=== PATIENT | female | born 1950 | race Caucasian/White ===

== ENCOUNTER → 2016-08-25 | Outpatient (CLI) | payer BC ==
[~2016-08-25] MED LIST: ACET-2267 PO; B12; CHOL200035 PO; CLAR250T3 PO; CNC1KV IJ; COLL30OI TP; DAPS100T3 PO; DIPH1TAB45 PO; DIPH30CR TP; ESOM20SU PO; GUAI1CAP52 PO; GUAI5SYR PO; IBUP-15 PO; LEVO500T69 PO; LISI20TA PO; LRT10T PO; LUTE6TAB PO; MELO7.5T PO; METR500T PO; MULT-963 PO; ND-PRIM50T PO; OMEP20CA12 PO; OMEP40CA36 PO; ONDAN4ODT PO; PNT40TEC PO; PRD10T PO; PROBIOTIC1 EACH PO; PROP20TA5 PO; PROP60CA PO; PROP60TA16 PO; RT-ALBUINH IH; SIMV20TA3 PO; SIMV40TA4 PO; SULF1TAB35 PO; TRAM-42 PO; VITA80006 PO; WARF5TAB PO; WRF5T PO; [UNRECOGNIZED DRUG - CODE] PO
--- NOTE | 2016-08-25 13:57 | Diagnostic Imaging Report ---
EXAMINATION: Left breast diagnostic mammogram with The current study was also evaluated with a Computer Aided Detection (CAD) system. COMPARISON: 01/15/2016. FINDINGS: There is no mass, architectural distortion, or suspicious calcification. IMPRESSION: No mammographic evidence of malignancy. The ultrasound evaluation is pending. ACR BI-RADS Category 0: Incomplete. (Needs additional imaging evaluation). Result letter will be mailed to the patient. Note: At least 10% of breast cancer is not imaged by mammography. Dictated by: Dictated on workstation # [id number]
--- NOTE | 2016-08-25 14:06 | Diagnostic Imaging Report ---
EXAMINATION: Left breast ultrasound. INDICATION: Pain and itching in the lower aspect of the left breast. FINDINGS: The area of pain and itching shows no underlying abnormality. IMPRESSION: Negative study. If symptoms persist or there is a high index of suspicion, then consider performing an MRI of the breasts. ACR BI-RADS Category 1: Negative. Dictated by: Dictated on workstation # [id number]
== END ==
LOC: RAD 07:33
PROVIDERS: ATTEND Surgery
DX: N64.4 Mastodynia (principal)
CPT/HCPCS: 76642

== ENCOUNTER → 2016-09-02 | Outpatient (CLI) | payer BC ==
[~2016-09-02] MED LIST changes: +GADOBUTROL 10 MMOL/10 ML (GADAVIST) VIAL IV ONE
[2016-09-02 08:00] LABS: BLOOD UREA NITROGEN 15 MG/DL (7-18); BUN/CREATININE RATIO 19; GFR ESTIMATED > 60
--- NOTE | 2016-09-03 17:31 | Diagnostic Imaging Report ---
EXAMINATION: MRI of the breast bilateral with and without contrast. INDICATION: Left breast pain. TECHNIQUE: Utilizing 1.5 Ines GE magnet, patient was placed in a prone position with 8-channel dual breast coil utilized. Axial STIR precontrasted image and axial T1 fat-sat postcontrast high-resolution images obtained. Sagittal T2-weighted images precontrast bilaterally as well. Sagittal vibrant temporal images were obtained pre and postcontrast with bolus technique utilized of gadolinium. Images are postcontrast immediately and subsequently for 7 minutes. Pre and postcontrasted images are then evaluated with [facility] for evaluation of possible angiogenesis. FINDINGS: By history, the patient experienced a sharp pain to the lower left breast approximately six weeks ago. The screening mammogram performed on 01/15/2016 failed to show any sign of malignancy or of an acute abnormality. The diagnostic mammogram and ultrasound exam of 08/25/2016 were also unremarkable for malignancy or for an acute abnormality involving the left breast. On this study, there is no abnormal enhancement involving the left breast on the postcontrast series to suggest a neoplastic or infectious process. There is no abnormality of the right breast either. The visualized portions of the thorax and upper abdomen show no obvious abnormality. The hiatal hernia seen on the CT chest exam of 01/23/2015 is partially visualized on this study and does not seem to have changed significantly. IMPRESSION: 1. There is no evidence for malignancy or for an acute abnormality to account for patient's pain in the left breast. Clinical follow up is recommended. 2. The right breast is unremarkable. 3. The hiatal hernia seen previously is again visualized and unchanged. These results were discussed with Dr. Baker. Dictated by: Dictated on workstation # [id number]
== END ==
LOC: RAD 07:26
PROVIDERS: ATTEND Surgery
DX: N64.4 Mastodynia (principal); N63 Unspecified lump in breast
CPT/HCPCS: 36415; 77059; 82565; 84520

== ENCOUNTER → 2017-02-08 | Outpatient (CLI) | payer BC ==
[~2017-02-08] MED LIST changes: -GADOBUTROL 10 MMOL/10 ML (GADAVIST) VIAL IV ONE
--- NOTE | 2017-02-09 10:54 | Diagnostic Imaging Report ---
Bilateral screening mammogram 2D views with tomosynthesis The current study was also evaluated with a Computer Aided Detection (CAD) system. Indication: Screening. No current complaints stated on the questionnaire. COMPARISON: 08/25/16 FINDINGS: The breasts are composed of scattered fibroglandular densities. There is no mass, architectural distortion or suspicious cluster of calcification. Allowing for technique and positional differences, no suspicious change is seen. IMPRESSION: No significant change. ACR BI-RADS Category 2: Benign findings. Result letter will be mailed to the patient. Note: At least 10% of breast cancer is not imaged by mammography. Dictated by: Dictated on workstation # [id number]
== END ==
LOC: RAD 15:31
PROVIDERS: ATTEND Internal Medicine
DX: Z12.31 Encounter for screening mammogram for malignant neoplasm of breast (principal)
CPT/HCPCS: 77067

== ENCOUNTER → 2017-04-08 | Outpatient (CLI) | payer BC ==
--- NOTE | 2017-04-08 20:40 | Diagnostic Imaging Report ---
EXAMINATION: DEXA scan. INDICATION: Menopause. TECHNIQUE: Bone mineral density estimated based on dual energy radiography over the lumbar spine and femoral necks, was performed. FINDINGS: The lumbar spine T-score is -0.5. This is 0.7% decreased density measurements compared to 2014 exam. T score of the left femoral neck is -0.3 and on the right side is -0.6. This is 0.7% increased density measurements compared to 2014 exam. IMPRESSION: Bone mineral density is within normal limits. Dictated by: Dictated on workstation # [id number]
== END ==
LOC: RAD 11:24
PROVIDERS: ATTEND Internal Medicine
DX: Z78.0 Asymptomatic menopausal state (principal)
CPT/HCPCS: 77080

== ENCOUNTER 2017-08-21 14:32 | Emergency (ER) | payer BC ==
[~2017-08-21] VITALS: Ht 170.2 cm; Wt 81.6 kg
[2017-08-21] MEDS ORDERED: FLEET ENEMA ADULT 1 EA BTL PR ONE (16:30)
[2017-08-21] MEDS ORDERED: fentaNYL INJECTION 100 MCG/2 ML AMP IVP ONE (16:30)
[2017-08-21] MEDS ORDERED: NS IV 1000 ML 1,000 ML IV SCH (16:30)
--- NOTE | 2017-08-21 16:33 | ED GI ---
General Chief Complaint: Abdominal/GI Problems Stated Complaint: BOWEL MOVEMENT ISSUES Source of Information: Patient Exam Limitations: No Limitations History of Present Illness Date Seen by Provider: Aug 21, 2017 Time Seen by Provider: 16:31 Initial Comments To ER come in by her mother with reports of possible fecal impaction. She states that she has some suprapubic abdominal pain. She has a history of very irregular bowel movements. It's been a few days since her last bowel movement. She took some Dulcolax tablets this morning which did not result in any bowel movement, only suprapubic abdominal cramping. No nausea or vomiting. Timing/Duration: 1-2 Days Severity/Quality: Cramping Location: Suprapubic Radiation: No Radiation Activities at Onset: None Allergies and Home Medications Allergies Coded Allergies: Penicillins (Verified Allergy, Mild, RASH, 07/19/13) codeine (Verified Adverse Reaction, Mild, KNOTS IN HER STOMACH, 07/19/13) Home Medications Acetaminophen 500 Mg Tablet, 1,000 MG PO TID PRN for PAIN, (Reported) Albuterol Sulfate 8.5 Gm Hfa.aer.ad, 2 PUFF IH Q4H PRN for CONGESTION Prescribed by: NIK LIMA on 01/22/15 141 Cholecalciferol (Vitamin D3) 2,000 Unit Capsule, 2,000 UNIT PO DAILY, (Reported) Ciprofloxacin HCl 500 Mg Tablet, 500 MG PO BID Prescribed by: NIK LIMA on 08/21/171815 Collagenase 30 Gm Oint..gm., TP HS, (Reported) Cyanocobalamin 1,000 Mcg/Ml Inj, 1,000 MCG IJ MONTHLY , (Reported) Dapsone 100 Mg Tablet, 100 MG PO DAILY, (Reported) FILLED 01/17/15 FOR 7 DAY THERAPY Diphenhydramine HCl 30 Gm Cream..g., TP DAILY, (Reported) Guaifenesin/Dextromethorphan 5 Ml Syrup, 10 ML PO QID PRN for COUGH, (Reported) Lactobacillus Rhamnosus Gg 1 Each Capsule, 1 EACH PO BID, (Reported) Loratadine 10 Mg Tab, 10 MG PO DAILY, (Reported) Lutein 6 Mg Tablet, 6 MG PO DAILY, (Reported) Metronidazole 500 Mg Tablet, 500 MG PO TID Prescribed by: NIK LIMA on 08/21/171815 Multivitamin 1 Each Tablet, 1 TAB PO DAILY, (Reported) Omeprazole 40 Mg Capsule.dr, 40 MG PO HS, (Reported) Prednisone 10 Mg Tab, 10 MG PO UD 40MG PO X3 DAYS, 30MG X3 DAYS, 20MG X3 DAYS, 10MG X3 DAYS, THEN STOP Prescribed by: GERRY DODGE on 01/28/15 1140 Primidone 50 Mg Tablet, 100 MG PO HS, (Reported) Propranolol HCl 60 Mg Cap.sa.24h, 60 MG PO DAILY, (Reported) Simvastatin 40 Mg Tablet, 40 MG PO HS, (Reported) Warfarin Sod 5 Mg Tab, 5 MG PO MO,TUE,KIMBERLY,FRI,SAT, (Reported) Warfarin Sodium 5 Mg Tablet, 7.5 MG PO WED, AND SUN, (Reported) Patient Home Medication List Home Medication List Reviewed: Yes Review of Systems Constitutional: see HPI EENTM: No Symptoms Reported Respiratory: No Symptoms Reported Cardiovascular: No Symptoms Reported Gastrointestinal: See HPI, Abdominal Pain, Constipated; Denies Diarrhea, Denies Nausea, Denies Vomiting Genitourinary: No Symptoms Reported Musculoskeletal: no symptoms reported Skin: no symptoms reported Psychiatric/Neurological: No Symptoms Reported Endocrine: No Symptoms Reported Hematologic/Lymphatic: No Symptoms Reported Past Vpjsohk-Rqyabo-Qlqlck Hx Patient Social History 2nd Hand Smoke Exposure: Yes Recent Foreign Travel: No Contact w/Someone Who Travel: No Immunizations Up To Date Tetanus Booster (TDap): Less than 5yrs Date of Pneumonia Vaccine: Feb 07, 2011 Date of Influenza Vaccine: Feb 07, 2014 Seasonal Allergies Seasonal Allergies: No Past Medical History Appendectomy, Gallbladder, Tonsillectomy Pulmonary Embolism Deep Vein Thrombosis, High Cholesterol 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 History: Menopausal Kidney Stones Colitis, Gastroesophageal Reflux, Diverticulosis, C-Diff, Hiatal Hernia, Ulcer, Gall Bladder Disease Family Medical History Cancer (grandmother breast ca great grandmother bone cancer brother leukemia) Cataract (grand grandparents ) Chest pain (grandmother ) Family history: Allergy 09 BROTHER Family history: Arthritis (mother has ra) 03 MOTHER Family history: Cardiovascular disease 03 FATHER Family history: Diabetes mellitus (uncle ) Family history: Glaucoma (grandparents ) Family history: Hypertension 03 MOTHER Family history: Osteoporosis 03 MOTHER Headache 03 MOTHER Heart disease (uncle ) 03 FATHER History of - anemia (grandmother and mother ) 03 MOTHER Kidney disease (brother had kidney stones ) Myocardial infarction 03 FATHER Prostate cancer (grandfather) Stroke 09 BROTHER Visual impairment No Family History of: Abdominal aortic aneurysm [place]'s disease Alcoholism Aphasia Cancer of colon Congenital heart disease Congestive heart failure Cystic fibrosis Dementia Dysphagia Family history: Alzheimer's disease Family history: Asthma Family history: Breast disease Family history: Coronary thrombosis Family history: Gastrointestinal disease Family history: Thyroid disorder Hearing loss Hereditary disease History of - disorder History of - respiratory disease History of drug abuse Human immunodeficiency virus (HIV) seropositivity Hypercholesterolemia Infertile Malignant neoplasm of lung Parkinson's disease Psychotic disorder Seizure disorder Tuberculosis Physical Exam Vital Signs Vital Signs - First Documented 08/21/17 16:54 Temp 97.4 Pulse 66 Resp 20 B/P (MAP) 118/83 (95) Pulse Ox 99 Capillary Refill : General Appearance: WD/WN, no apparent distress HEENT: PERRL/EOMI, normal ENT inspection Neck: non-tender, full range of motion Respiratory: no respiratory distress, no accessory muscle use Cardiovascular: regular rate, rhythm Gastrointestinal: normal bowel sounds, soft, tenderness (Suprapubic tenderness) Genital/Rectal: other (Digital rectal exam done with an RN at the bedside. I am unable to palpate any fecal impaction within the rectal vault.) Extremities: normal range of motion, non-tender Neurologic/Psychiatric: alert, normal mood/affect, oriented x 3 Skin: normal color, warm/dry Progress/Results/Core Measures Lab Results Laboratory Tests Test 08/21/17 16:20 08/21/17 17:05 Range/Units White Blood Count 16.6 H 4.3-11.0 10^3/uL Red Blood Count 5.09 4.35-5.85 10^6/uL Hemoglobin 15.5 11.5-16.0 G/DL Hematocrit 45 35-52 % Mean Corpuscular Volume 89 80-99 FL Mean Corpuscular Hemoglobin 31 25-34 PG Mean Corpuscular Hemoglobin Concent 34 32-36 G/DL Red Cell Distribution Width 13.9 10.0-14.5 % Platelet Count 286 130-400 10^3/uL Mean Platelet Volume 11.4 H 7.4-10.4 FL Neutrophils (%) (Auto) 82 H 42-75 % Lymphocytes (%) (Auto) 13 12-44 % Monocytes (%) (Auto) 4 0-12 % Eosinophils (%) (Auto) 0 0-10 % Basophils (%) (Auto) 0 0-10 % Neutrophils # (Auto) 13.6 H 1.8-7.8 X 10^3 Lymphocytes # (Auto) 2.2 1.0-4.0 X 10^3 Monocytes # (Auto) 0.7 0.0-1.0 X 10^3 Eosinophils # (Auto) 0.1 0.0-0.3 10^3/uL Basophils # (Auto) 0.0 0.0-0.1 10^3/uL Neutrophils % (Manual) 86 % Lymphocytes % (Manual) 12 % Monocytes % (Manual) 1 % Eosinophils % (Manual) 1 % Basophils % (Manual) 0 % Band Neutrophils 0 % Blood Morphology Comment NORMAL Prothrombin Time 20.0 H 12.2-14.7 SEC INR Comment 1.7 H 0.8-1.4 Sodium Level 139 135-145 MMOL/L Potassium Level 4.4 3.6-5.0 MMOL/L Chloride Level 108 H 98-107 MMOL/L Carbon Dioxide Level 22 21-32 MMOL/L Anion Gap 9 5-14 MMOL/L Blood Urea Nitrogen 13 7-18 MG/DL Creatinine 0.71 0.60-1.30 MG/DL Estimat Glomerular Filtration Rate > 60 BUN/Creatinine Ratio 18 Glucose Level 121 H 70-105 MG/DL Calcium Level 9.7 8.5-10.1 MG/DL Total Bilirubin 0.2 0.1-1.0 MG/DL Aspartate Amino Transf (AST/SGOT) 16 5-34 U/L Alanine Aminotransferase (ALT/SGPT) 23 0-55 U/L Alkaline Phosphatase 78 40-136 U/L Total Protein 6.7 6.4-8.2 GM/DL Albumin 4.3 3.2-4.5 GM/DL Urine Color YELLOW Urine Clarity CLEAR Urine pH 5 5-9 Urine Specific [place] 1.025 H 1.016-1.022 Urine Protein 1+ H NEGATIVE Urine Glucose (UA) NEGATIVE NEGATIVE Urine Ketones NEGATIVE NEGATIVE Urine Nitrite NEGATIVE NEGATIVE Urine Bilirubin NEGATIVE NEGATIVE Urine Urobilinogen NORMAL NORMAL MG/DL Urine Leukocyte Esterase NEGATIVE NEGATIVE Urine RBC (Auto) 1+ H NEGATIVE Urine RBC 0-2 /HPF Urine WBC NONE /HPF Urine Squamous Epithelial Cells 0-2 /HPF Urine Crystals NONE /LPF Urine Bacteria NEGATIVE /HPF Urine Casts NONE /LPF Urine Mucus NEGATIVE /LPF Urine Culture Indicated NO My Orders Orders - NIK LIMA SUPERVISOR KNITTING Cbc With Automated Diff (08/21/17 16:24) Comprehensive Metabolic Panel (08/21/17 16:24) Protime With Inr (08/21/17 16:24) Na Phos/Na Biphos Enema (Fleet Enema Leo (08/21/17 16:30) Ns Iv 1000 Ml (Sodium Chloride 0.9%) (08/21/17 16:30) Fentanyl Injection (Sublimaze Injection (08/21/17 16:30) Ua Culture If Indicated (08/21/17 16:30) Manual Differential (08/21/17 16:20) Ct Abdomen/Pelvis W (08/21/17 16:59) Iohexol Injection (Omnipaque 350 Mg/Ml 1 (08/21/17 17:15) Sodium Chloride Flush (Catheter Flush Sy (08/21/17 17:15) Ns (Ivpb) (Sodium Chloride 0.9%) (08/21/17 17:15) Pharmacy Communication (Pharmacy Communi (08/21/17 17:12) Levofloxacin Tablet (Levaquin Tablet) (08/21/17 18:15) Metronidazole Tablet (Flagyl Tablet) (08/21/17 18:15) Ketorolac Injection (Toradol Injection) (08/21/17 19:15) Magnesium Citrate Oral Soln (Citrate Of (08/21/17 19:15) Medications Given in ED Current Medications Medications Dose Ordered Sig/Patricia Route Start Time Stop Time Status Last Admin Dose Admin Fentanyl Citrate 50 mcg ONCE ONCE IVP 08/21/17 16:30 08/21/17 16:31 DC 08/21/17 16:46 50 MCG Iohexol 100 ml ONCE ONCE IV 08/21/17 17:15 08/21/17 17:16 DC 08/21/17 17:32 100 ML Sodium Biphosphate/ Sodium Phosphate 1 ea ONCE ONCE [place] 08/21/17 16:30 08/21/17 16:31 DC 08/21/17 16:46 1 EA Sodium Chloride 10 ml NEEDED PRN IV 08/21/17 17:15 08/21/17 17:32 10 ML Sodium Chloride 250 ml ONCE ONCE IV 08/21/17 17:15 08/21/17 17:16 DC 08/21/17 17:32 80 ML Vital Signs/I&O 08/21/17 16:54 Temp 97.4 Pulse 66 Resp 20 B/P (MAP) 118/83 (95) Pulse Ox 99 Departure Communication (Admissions) 1899-CT was read as constipation. However given her leukocytosis and suprapubic abdominal cramping pain I do have some concern for sigmoid diverticulitis. I will treat with Cipro and Flagyl and laxative. Did administer a fleets enema here without success. We will also try a soapsuds enema. Impression Primary Impression: Constipation Disposition: HOME, SELF-CARE Condition: Stable Departure-Patient Inst. Decision time for Depature: 18:12 Referrals: JAMES MARAVILLA DO (PCP/Family) Primary Care Physician Patient Instructions: Constipation, Adult (DC) Add. Discharge Instructions: 1. Drink the whole bottle of magnesium citrate over about 30 minutes to 1 hour once you get home. Hope for a bowel movement (unfortunately also will have some abdominal cramping) a few hours later. If no BM by tomorrow, then, 2. Purchase MiraLAX and dissolve 4 capfuls or packets (which ever type you buy) into a 32 ounce bottle of Gatorade or water. Drink this all over about one to 2 hours. You may repeat this as needed up to twice a day. I do have some concern about early diverticulitis the sigmoid colon sign going to put you on an antibiotic as well 3. Antibiotics as directed just in case there is some early or mild diverticulitis causing your elevated white blood cell count and pain. Follow up with Dr Maravilla on Wednesday. Return promptly to ER for any intolerable or worsening pain, fevers, other conerns 4. youll also need to have your INR (blood test for coumadin) rechecked next week as a result of these antibiotics. Scripts Metronidazole (Flagyl) 500 Mg Tablet 500 MG PO TID, #21 TAB Prov: NIK LIMA APRN 08/21/17 Ciprofloxacin HCl (Cipro) 500 Mg Tablet 500 MG PO BID, #14 TAB Prov: NIK LIMA APRN 08/21/17 Copy Copies To 1: JAMES MARAVILLA PETER J APRN Aug 21, 2017 16:33
[2017-08-21 16:47] LABS: BASOPHILS % (AUTO) 0 % (0-10); EOSINOPHILS # (AUTO) 0.1 10^3/uL (0.0-0.3); EOSINOPHILS % (AUTO) 0 % (0-10); HEMATOCRIT 45 % (35-52); HEMOGLOBIN 15.5 G/DL (11.5-16.0); LYMPHOCYTES # (AUTO) 2.2 X 10^3 (1.0-4.0); LYMPHOCYTES % (AUTO) 13 % (12-44); MEAN CORPUSCULAR HEMOGLOBIN 31 PG (25-34); MEAN CORPUSCULAR HGB CONC 34 G/DL (32-36); MEAN CORPUSCULAR VOLUME 89 FL (80-99); MEAN PLATELET VOLUME 11.4 FL (7.4-10.4); MONOCYTES # (AUTO) 0.7 X 10^3 (0.0-1.0); MONOCYTES % (AUTO) 4 % (0-12); NEUTROPHILS # (AUTO) 13.6 X 10^3 (1.8-7.8); NEUTROPHILS % (AUTO) 82 % (42-75); PLATELET COUNT 286 10^3/uL (130-400); RED BLOOD COUNT 5.09 10^6/uL (4.35-5.85); RED CELL DISTRIBUTION WIDTH 13.9 % (10.0-14.5); WHITE BLOOD COUNT 16.6 10^3/uL (4.3-11.0)
[2017-08-21 16:55] LABS: INR 1.7 (0.8-1.4)
[2017-08-21 17:01] LABS: BAND NEUTROPHILS 0 %; BASOPHILS % (MANUAL) 0 %; EOSINOPHILS % (MANUAL) 1 %; LYMPHOCYTES % (MANUAL) 12 %; MONOCYTES % (MANUAL) 1 %; NEUTROPHILS % (MANUAL) 86 %; RBC MORPH NORMAL
[2017-08-21 17:02] LABS: ALANINE AMINOTRANSFERASE 23 U/L (0-55); ALBUMIN 4.3 GM/DL (3.2-4.5); ALKALINE PHOSPHATASE 78 U/L (40-136); BILIRUBIN,TOTAL 0.2 MG/DL (0.1-1.0); BUN/CREATININE RATIO 18; CALCIUM 9.7 MG/DL (8.5-10.1); CARBON DIOXIDE 22 MMOL/L (21-32); CHLORIDE 108 MMOL/L (98-107); CREATININE SERUM 0.71 MG/DL (0.60-1.30); GFR ESTIMATED > 60; GLUCOSE 121 MG/DL (70-105); POTASSIUM 4.4 MMOL/L (3.6-5.0); SODIUM 139 MMOL/L (135-145); TOTAL PROTEIN 6.7 GM/DL (6.4-8.2)
[2017-08-21 17:15] LABS: BILIRUBIN,URINE NEGATIVE (NEGATIVE); CLARITY,URINE CLEAR; COLOR,URINE YELLOW; GLUCOSE, URINE (UA) NEGATIVE (NEGATIVE); KETONES,URINE NEGATIVE (NEGATIVE); LEUKOCYTE ESTERASE ,URINE NEGATIVE (NEGATIVE); NITRITE,URINE NEGATIVE (NEGATIVE); PH,URINE 5 (5-9); PROTEIN,URINE 1+ (NEGATIVE); UROBILINOGEN,URINE NORMAL (NORMAL)
[2017-08-21] MEDS ORDERED: IOHEXOL 350 MG/ML 100 ML (OMNIPAQUE 350) VIAL IV ONE (17:15)
[2017-08-21] MEDS ORDERED: CATHETER FLUSH 10 ML SYR IV PRN (17:15)
[2017-08-21] MEDS ORDERED: NS 250 ML (IVPB) BAG IV ONE (17:15)
[2017-08-21 17:24] LABS: BACTERIA,URINE NEGATIVE /HPF; RBC,URINE 0-2 /HPF; SQUAMOUS EPITHELIAL CELL,UR 0-2 /HPF
--- NOTE | 2017-08-21 17:35 | Diagnostic Imaging Report ---
PROCEDURE: CT abdomen and pelvis with contrast. TECHNIQUE: Multiple contiguous axial images were obtained through the abdomen and pelvis after administration of intravenous contrast. INDICATION: Lower abdominal pain. FINDINGS: There is a sliding hiatal hernia. Liver appears normal. Gallbladder is absent. Pancreas is unremarkable. Spleen is not enlarged. Adrenals are normal. Kidneys appear normal. Small bowel is not dilated. There is diverticulosis of the sigmoid colon. There is no evidence of diverticulitis. There does appear to be fecal stasis in the colon. Uterus and ovaries are unremarkable. Urinary bladder is normal. IMPRESSION: Sigmoid diverticulosis. Constipation. Dictated by: Dictated on workstation # [id number]
[2017-08-21] MEDS ORDERED: metroNIDAZOLE 500 MG (FLAGYL) TAB PO ONE (18:15)
[2017-08-21] MEDS ORDERED: LEVOFLOXACIN 500 MG TAB (LEVAQUIN) PO ONE (18:15)
[2017-08-21] MEDS ORDERED: METR500T PO (18:16)
[2017-08-21] MEDS ORDERED: CIPR-225 PO (18:16)
[2017-08-21] MEDS ORDERED: KETOROLAC 30 MG/ML VIAL IVP ONE (19:15)
[2017-08-21] MEDS ORDERED: MAGNESIUM CITRATE 300 ML BTL PO ONE (19:15)
[2017-08-21 19:32] VITALS: BP 118/83
--- OUTSIDE RECORDS SUMMARY | 2017-08-22 10:03 | XMS REPORT | Continuity of Care Document ---
Author Author [facility] Organization [facility] Address Unknown Phone Unavailable Allergies Active Description Code Type Severity Reaction Onset Reported/Identified Relationship to Patient Clinical Status Yes codeine [id number] Drug Allergy Mild KNOTS IN HER ST 07/19/2013 Yes Penicillins [id number] Drug Allergy Mild RASH 07/19/2013 Medications There is no data. Problems Date Dx Coded Attending Type Code Diagnosis Diagnosed By 05/16/2011 Ot 553.3 DIAPHRAGMATIC HERNIA 05/16/2011 Ot 558.9 NONINF GASTROENTERIT NEC 05/16/2011 Ot 564.00 UNSPEC CONSTIPATION 05/16/2011 Ot 787.91 DIARRHEA 05/16/2011 Ot 791.9 ABN URINE FINDINGS NEC 05/27/2011 Ot 272.4 HYPERLIPIDEMIA NEC/NOS 05/27/2011 Ot 333.1 TREMOR NEC 05/27/2011 Ot 530.81 ESOPHAGEAL REFLUX 05/27/2011 Ot 531.90 STOMACH ULCER NOS 05/27/2011 Ot 535.40 OTH SPECIFIED GASTRITIS,W/O MENTION OF H 05/27/2011 Ot 553.3 DIAPHRAGMATIC HERNIA 05/27/2011 Ot 562.10 DIVERTICULOSIS COLON (W/O MENT OF HEMORR 05/27/2011 Ot 576.2 OBSTRUCTION OF BILE DUCT 05/27/2011 Ot 577.0 ACUTE PANCREATITIS 05/27/2011 Ot 592.0 CALCULUS OF KIDNEY 05/27/2011 Ot 793.11 SOLITARY PULMONARY NODULE 05/27/2011 Ot 999.2 VASC COMP MED CARE NEC 09/28/2011 Ot 787.91 DIARRHEA 10/01/2011 Ot 008.45 INTESTINAL INFECTION DUE TO CLOSTRIDIUM 10/01/2011 Ot 272.4 HYPERLIPIDEMIA NEC/NOS 10/01/2011 Ot 276.51 DEHYDRATION 10/01/2011 Ot 333.1 TREMOR NEC 10/01/2011 Ot 530.81 ESOPHAGEAL REFLUX 10/01/2011 Ot 793.11 SOLITARY PULMONARY NODULE 05/30/2012 Ot 272.4 HYPERLIPIDEMIA NEC/NOS 05/30/2012 Ot 453.40 ACUTE VENOUS EMBOLISM THROMBOSIS UNSP 05/30/2012 Ot 530.81 ESOPHAGEAL REFLUX 05/30/2012 Ot 553.3 DIAPHRAGMATIC HERNIA 05/30/2012 Ot 562.10 DIVERTICULOSIS COLON (W/O MENT OF HEMORR 05/30/2012 Ot 592.9 URINARY CALCULUS NOS 05/30/2012 Ot 781.0 ABN INVOLUN MOVEMENT NEC 05/30/2012 Ot 793.11 SOLITARY PULMONARY NODULE 05/30/2012 Ot V12.71 PERSONAL HISTORY OF PEPTIC ULCER DISEASE 06/08/2012 Ot 272.4 HYPERLIPIDEMIA NEC/NOS 06/08/2012 Ot 286.3 AYESHA DEF CLOT FACTOR NEC 06/08/2012 Ot 333.1 TREMOR NEC 06/08/2012 Ot 415.19 OTH PULMON EMBOLISM/INFARCT 06/08/2012 Ot 453.40 ACUTE VENOUS EMBOLISM THROMBOSIS UNSP 06/08/2012 Ot 530.81 ESOPHAGEAL REFLUX 06/08/2012 Ot 553.3 DIAPHRAGMATIC HERNIA 06/08/2012 Ot 562.10 DIVERTICULOSIS COLON (W/O MENT OF HEMORR 06/08/2012 Ot 574.20 CHOLELITHIASIS NOS 06/08/2012 Ot 793.11 SOLITARY PULMONARY NODULE 06/08/2012 Ot V12.71 PERSONAL HISTORY OF PEPTIC ULCER DISEASE 07/21/2013 JAMES LEAL DO Ot 009.1 ENTERITIS OF INFECT ORIG 07/21/2013 JAMES LEAL DO Ot 272.4 HYPERLIPIDEMIA NEC/NOS 07/21/2013 JAMES LEAL DO Ot 276.51 DEHYDRATION 07/21/2013 JAMES LEAL DO Ot 276.8 HYPOPOTASSEMIA 07/21/2013 JAMES LEAL DO Ot 286.3 AYESHA DEF CLOT FACTOR NEC 07/21/2013 JAMES LEAL DO Ot 333.1 TREMOR NEC 07/21/2013 JAMES LEAL DO Ot 530.81 ESOPHAGEAL REFLUX 07/21/2013 JAMES LEAL DO Ot 553.3 DIAPHRAGMATIC HERNIA 07/21/2013 JAMES LEAL DO Ot 562.10 DIVERTICULOSIS COLON (W/O MENT OF HEMORR 07/21/2013 JAMES LEAL DO Ot 592.0 CALCULUS OF KIDNEY 07/21/2013 JAMES LEAL DO Ot 793.11 SOLITARY PULMONARY NODULE 07/21/2013 JAMES LEAL DO Ot V12.51 HX-VENOUS THROMBOSIS EMBOLISM 07/21/2013 JAMES LEAL DO Ot V12.55 PERSONAL HISTORY OF PULMONARY EMBOLISM 07/21/2013 JAMES LEAL DO Ot V12.71 PERSONAL HISTORY OF PEPTIC ULCER DISEASE 10/06/2013 STANISLAV LAZO MD Ot 562.10 DIVERTICULOSIS COLON (W/O MENT OF HEMORR 10/06/2013 STANISLAV LAZO MD Ot 569.82 ULCERATION OF INTESTINE 10/06/2013 STANISLAV LAZO MD Ot V76.51 SCREEN MAL NEOP-COLON 04/24/2014 RODRIGO DEL RIO DO Ot 558.9 NONINF GASTROENTERIT NEC 04/24/2014 RODRIGO DEL RIO DO Ot 789.09 ABDOMINAL PAIN, OTHER SPECIFIED SITE 07/02/2014 JAMES LEAL DO Ot 786.50 12/27/2014 JAMES LEAL DO, Ot V76.12 12/30/2014 RODRIGO DEL RIO DO Ot 916.4 INSECT BITE HIP LEG 12/30/2014 RODRIGO DEL RIO DO Ot E000.8 OTHER EXTERNAL CAUSE STATUS 12/30/2014 RODRIGO DEL RIO DO Ot E906.4 NONVENOM ARTHROPOD BITE 01/22/2015 NIK LIMA APRN Ot 490 BRONCHITIS NOS 01/22/2015 NIK LIMA APRN Ot 780.60 FEVER, UNSPECIFIED 01/22/2015 NIK LIMA APRN Ot 790.92 COAGULATION PROFILE, ABNORMAL 01/22/2015 NIK LIMA APRN Ot V12.51 HX-VENOUS THROMBOSIS EMBOLISM 01/22/2015 NIK LIMA APRN Ot V12.55 PERSONAL HISTORY OF PULMONARY EMBOLISM 01/22/2015 NIK LIMA APRN Ot V58.61 ANTICOAGULANTS,LT,CURRENT USE 01/22/2015 NIK LIMA APRN Ot V58.69 OTH MED,LT,CURRENT USE 01/24/2015 STEFANIA AVILES MD Ot 989.5 01/24/2015 STEFANIA AVILES MD Ot E905.1 01/25/2015 JAMES LEAL DO Ot 272.0 01/25/2015 JAMES LEAL DO Ot 272.4 01/25/2015 JAMES LEAL DO Ot 288.60 01/25/2015 JAMES LEAL DO Ot 465.9 01/25/2015 JAMES LEAL DO Ot 511.9 01/25/2015 JAMES LEAL DO Ot 530.81 01/25/2015 JAMES LEAL DO, Ot V12.51 01/28/2015 JAMES LEAL DO Ot 272.0 PURE HYPERCHOLESTEROLEM 01/28/2015 JAMES LEAL DO Ot 272.4 HYPERLIPIDEMIA NEC/NOS 01/28/2015 JAMES LEAL DO Ot 276.8 HYPOPOTASSEMIA 01/28/2015 JAMES LEAL DO Ot 288.60 LEUKOCYTOSIS, UNSPECIFIED 01/28/2015 JAMES LEAL DO Ot 333.1 TREMOR NEC 01/28/2015 JAMES LEAL DO Ot 423.9 PERICARDIAL DISEASE NOS 01/28/2015 JAMES LEAL DO Ot 465.9 ACUTE URI NOS 01/28/2015 JAMES LEAL DO Ot 486 PNEUMONIA, ORGANISM NOS 01/28/2015 JAMES LEAL DO Ot 511.9 PLEURAL EFFUSION NOS 01/28/2015 JAMES LEAL DO Ot 515 POSTINFLAM PULM FIBROSIS 01/28/2015 JAMES LEAL DO Ot 530.81 ESOPHAGEAL REFLUX 01/28/2015 JAMES LEAL DO Ot 916.4 INSECT BITE HIP LEG 01/28/2015 JAMES LEAL DO Ot E000.8 OTHER EXTERNAL CAUSE STATUS 01/28/2015 JAMES LEAL DO, Ot E905.1 VENOMOUS SPIDER BITE 01/28/2015 JAMES LEAL DO, Ot V12.51 HX-VENOUS THROMBOSIS EMBOLISM 01/28/2015 JAMES LEAL DO, Ot V12.55 PERSONAL HISTORY OF PULMONARY EMBOLISM 01/28/2015 JAMES LEAL DO, Ot V12.79 PERSONAL HISTORY OTH SPEC DIGESTIVE SYST 02/04/2015 REGINE BROWN MD Ot 786.50 CHEST PAIN NOS 02/04/2015 REGINE BROWN MD Ot V58.61 ANTICOAGULANTS,LT,CURRENT USE 02/06/2015 STEFANIA AVILES MD Ot 989.5 TOXIC EFFECT VENOM 02/06/2015 STEFANIA AVILES MD Ot E905.1 VENOMOUS SPIDER BITE 02/12/2015 STEFANIA AVILES MD Ot 989.5 02/12/2015 STEFANIA AVILES MD Ot E905.1 03/07/2015 STEFANIA AVILES MD Ot 989.5 03/07/2015 STEFANIA AVILES MD Ot E905.1 03/27/2015 STEFANIA AVLIES MD Ot L97.121 03/27/2015 STEFANIA AVILES MD Ot T63.331A 04/09/2015 STEFANIA AVILES MD, Ot L97.121 NON-PRS CHRONIC ULCER OF LEFT THIGH LIMI 04/09/2015 STEFAN RUTHERFORD, STEFANIA Shrestha Ot T63.331A TOXIC EFFECT OF VENOM OF DAYAN BARNESSE S 10/09/2015 Ot 553.3 DIAPHRAGMATIC HERNIA 10/09/2015 Ot 558.9 NONINF GASTROENTERIT NEC 10/09/2015 Ot 564.00 UNSPEC CONSTIPATION 10/09/2015 Ot 787.91 DIARRHEA 10/09/2015 Ot 791.9 ABN URINE FINDINGS NEC 01/15/2016 Ot V76.12 OTH SCREEN MAMMO-MALIGN NEOPLASM OF [place] 01/15/2016 Ot 789.00 ABDOMINAL PAIN, UNSPECIFIED SITE 01/15/2016 Ot 453.41 ACUTE VENOUS EMBOLISM THROMBOSIS DEEP 01/15/2016 Ot V76.12 OTH SCREEN MAMMO-MALIGN NEOPLASM OF [place] 01/15/2016 JAMES LEAL DO Ot 793.82 INCONCLUSIVE MAMMOGRAM 01/15/2016 JAMES LEAL DO Ot V76.12 OTH SCREEN MAMMO-MALIGN NEOPLASM OF [place] 01/15/2016 JAMES LEAL DO Ot 793.80 UNSPEC ABNORMAL MAMMOGRAM 01/15/2016 CLIFTON RUTHERFORD, STANISLAV Cueto Ot V72.84 EXAM PRE-OPERATIVE NOS 01/15/2016 JAMES LEAL DO Ot V49.81 ASYMPT POSTMENOPAUSAL STATUS (AGE-RELATE 01/15/2016 JAMES LEAL DO Ot V82.81 SCREENING FOR OSTEOPOROSIS 01/15/2016 JAMES LEAL DO Ot 786.50 CHEST PAIN NOS 01/15/2016 JAMES LEAL DO Ot V76.12 OTH SCREEN MAMMO-MALIGN NEOPLASM OF [place] 01/17/2016 JAMES LEAL DO Ot Z12.31 ENCNTR SCREEN MAMMOGRAM FOR MALIGNANT NE 01/29/2016 JAMES LEAL DO, Ot Z12.31 ENCNTR SCREEN MAMMOGRAM FOR MALIGNANT NE 03/10/2016 Ot 787.91 DIARRHEA 08/25/2016 Ot 789.00 ABDOMINAL PAIN, UNSPECIFIED SITE 08/25/2016 Ot 453.41 ACUTE VENOUS EMBOLISM THROMBOSIS DEEP 08/25/2016 Ot V76.12 OTH SCREEN MAMMO-MALIGN NEOPLASM OF [place] 08/25/2016 JAMES LEAL DO Ot 793.82 INCONCLUSIVE MAMMOGRAM 08/25/2016 JAMES LEAL DO, Ot V76.12 OTH SCREEN MAMMO-MALIGN NEOPLASM OF [place] 08/25/2016 JAMES LEAL DO Ot 793.80 UNSPEC ABNORMAL MAMMOGRAM 08/25/2016 CLIFTON RUTHERFORD, STANISLAV Cueto Ot V72.84 EXAM PRE-OPERATIVE NOS 08/25/2016 JAMES LEAL DO Ot V49.81 ASYMPT POSTMENOPAUSAL STATUS (AGE-RELATE 08/25/2016 JAMES LEAL DO Ot V82.81 SCREENING FOR OSTEOPOROSIS 08/25/2016 JAMES LEAL DO Ot 786.50 CHEST PAIN NOS 08/25/2016 JAMES LEAL DO Ot V76.12 OTH SCREEN MAMMO-MALIGN NEOPLASM OF [place] 08/25/2016 JAMES LEAL DO Ot Z12.31 ENCNTR SCREEN MAMMOGRAM FOR MALIGNANT NE 08/26/2016 AUGUSTA RUTHERFORD, GUILLE Kerns Ot N64.4 MASTODYNIA 09/07/2016 Ot 553.3 DIAPHRAGMATIC HERNIA 09/07/2016 Ot 558.9 NONINF GASTROENTERIT NEC 09/07/2016 Ot 564.00 UNSPEC CONSTIPATION 09/07/2016 Ot 787.91 DIARRHEA 09/07/2016 Ot 791.9 ABN URINE FINDINGS NEC 09/16/2016 AUGUSTA RUTHERFORD, GUILLE Kerns Ot N64.4 MASTODYNIA 09/16/2016 AUGUSTA RUTHERFORD, GUILLE Kerns Ot N63 UNSPECIFIED LUMP IN BREAST 09/16/2016 AUGUSTA RUTHERFORD, GUILLE Kerns Ot N64.4 MASTODYNIA 02/09/2017 JAMES LEAL DO, Ot Z12.31 ENCNTR SCREEN MAMMOGRAM FOR MALIGNANT NE 02/17/2017 JAMES LEAL DO, Ot Z12.31 ENCNTR SCREEN MAMMOGRAM FOR MALIGNANT NE 04/22/2017 JAMES LEAL DO Ot Z78.0 ASYMPTOMATIC MENOPAUSAL STATE Procedures Code Description Performed By Performed On 45.16 ESOPHAGOGASTRODUODENOSCOPY [ EGD] W/CLOSE 05/18/2011 51.85 ENDOSCOPIC SPHINCTEROTOMY AND PAPILLOTOM 05/20/2011 51.87 ENDOSCOP INSERTION OF STENT (TUBE) INTO 05/20/2011 Results Test Result Range [id number] - 09/02/16 07:40 Serum or plasma urea nitrogen measurement (mass/volume) 15 mg/dL 7-18 Serum or plasma creatinine measurement (mass/volume) 0.80 mg/dL 0.60-1.30 Serum or plasma urea nitrogen/creatinine mass ratio 19 NRG Serum or plasma creatinine measurement with calculation of estimated glomerular filtration rate > NRG Encounters ACCT No. Visit Date/Time Discharge Status Pt. Type Provider Facility Loc./Unit Complaint [id number] 04/08/2017 11:24:00 04/08/2017 23:59:59 CLS Outpatient JAMES LEAL DO [facility] RAD MENOPAUSE [id number] 02/08/2017 15:31:00 02/08/2017 23:59:59 CLS Outpatient JAMES LEAL DO [facility] RAD SCREENING [id number] 09/02/2016 07:26:00 09/02/2016 23:59:59 CLS Outpatient GUILLE DERAS MD [facility] RAD LEFT BREAST PAIN [id number] 08/25/2016 07:33:00 08/25/2016 23:59:59 CLS Outpatient GUILLE DERAS MD [facility] RAD LEFT BREAST PAIN/ LUMP [id number] 01/15/2016 14:58:00 01/15/2016 23:59:59 CLS Outpatient JAMES LEAL DO [facility] RAD ROUTINE SCREENING [id number] 04/09/2015 08:23:00 04/09/2015 12:00:00 DIS Outpatient STEFANIA AVILES MD [facility] WOUNDCARE [id number] 02/05/2015 08:31:00 02/06/2015 00:01:00 DIS Outpatient STEFANIA AVILES MD [facility] WOUNDCARE [id number] 02/04/2015 14:14:00 02/04/2015 17:47:00 DIS Emergency REGINE BROWN MD [facility] ER CHEST PAIN [id number] 01/23/2015 20:11:00 01/28/2015 12:25:00 DIS Inpatient JAMES LEAL DO [facility] SURGICAL LEUKOCYTOSIS, PLEURAL EFFUSION,FEVER [id number] 01/22/2015 11:52:00 01/22/2015 14:21:00 DIS Emergency NIK LIMA APRN [facility] ER STIFF NECK/FEVER/HEADACHE COUGH CHEST TIGHTNESS [id number] 12/30/2014 01:56:00 12/30/2014 02:29:00 DIS Emergency ELIANE RODRIGO KIDD [facility] ER POSSIBLE INSECT BITE [id number] 12/11/2014 09:07:00 12/11/2014 23:59:59 CLS Outpatient JAMES LEAL DO [facility] RAD SCREENING [id number] 04/24/2014 18:12:00 04/24/2014 22:20:00 DIS Emergency ELIANE RODRIGO KIDD [facility] ER ABD PAIN [id number] 02/16/2014 06:49:00 02/16/2014 23:59:59 CLS Outpatient JAMES LEAL DO [facility] CARD CP [id number] 02/01/2014 09:40:00 02/01/2014 23:59:59 CLS Outpatient JAMES LEAL DO [facility] RAD OSTEOPOROSIS [id number] 10/06/2013 06:36:00 10/06/2013 11:00:00 DIS Outpatient STANISLAV LAZO MD [facility] SDC SCREENING [id number] 10/04/2013 07:34:00 10/04/2013 23:59:59 CLS Outpatient STANISLAV LAZO MD [facility] PREOP SCREENING [id number] 08/29/2013 14:15:00 08/29/2013 23:59:59 CLS Outpatient JAMES LEAL DO [facility] RAD ABNORMAL MAMMO [id number] 08/10/2013 15:33:00 08/10/2013 23:59:59 CLS Outpatient JAMES LEAL DO [facility] RAD SCREENING [id number] 07/19/2013 16:00:00 07/21/2013 13:15:00 DIS Inpatient LEAL JAMES KIDD [facility] 4TH NAUSEA,VOMITING, HEMATOCHEZIA [id number] 12/05/2014 08:12:00 Document Registration [id number] 07/29/2012 15:18:00 Document Registration [id number] 06/01/2012 14:33:00 Document Registration [id number] 05/26/2012 13:02:00 Document Registration [id number] 05/26/2012 11:31:00 Document Registration [id number] 10/07/2011 15:21:00 Document Registration [id number] 09/29/2011 10:16:00 Document Registration [id number] 09/28/2011 20:32:00 Document Registration [id number] 05/16/2011 20:56:00 Document Registration [id number] 12/18/2010 15:34:00 Document Registration [email or web address] 02/19/2015 08:33:11 ACT Document Registration
== END 2017-08-21 19:31 | disposition home or self-care (01) ==
LOC: ER 14:32
DX: K59.00 Constipation, unspecified (principal); E78.00 Pure hypercholesterolemia, unspecified; Z88.0 Allergy status to penicillin; Z88.5 Allergy status to narcotic agent; Z77.22 Contact with and (suspected) exposure to environmental tobacco smoke (acute) (chronic); Z79.01 Long term (current) use of anticoagulants; Z79.52 Long term (current) use of systemic steroids; Z90.49 Acquired absence of other specified parts of digestive tract; Z90.89 Acquired absence of other organs; Z87.01 Personal history of pneumonia (recurrent); Z86.711 Personal history of pulmonary embolism; Z86.718 Personal history of other venous thrombosis and embolism; Z87.42 Personal history of other diseases of the female genital tract; Z87.19 Personal history of other diseases of the digestive system; Z80.3 Family history of malignant neoplasm of breast
CPT/HCPCS: 36415; 74177; 80053; 81000; 85007; 85027; 85610; 96361; 96374; 96375

== ENCOUNTER 2018-04-20 03:01 | Emergency (ER) | payer BC ==
[~2018-04-20] VITALS: Ht 170.2 cm; Wt 79.4 kg
[~2018-04-20 03:01] MED LIST changes: +CIPR-225 PO
[2018-04-20] MEDS ORDERED: GABA-488 (03:15)
[2018-04-20] MEDS ORDERED: FAMC500T17 (03:15)
[2018-04-20] MEDS ORDERED: RX-TRAMADOL 50 MG (ULTRAM) TAB PPK#4 PO STA (03:28)
[2018-04-20] MEDS ORDERED: KETOROLAC 60 MG/2 ML VIAL IM ONE (03:30)
[2018-04-20] MEDS ORDERED: predniSONE 20 MG TAB ONE (03:37)
--- NOTE | 2018-04-20 03:43 | ED Integumentary General ---
General Chief Complaint: Skin/Wound Problems Stated Complaint: SHINGLES Nursing Triage Note: SHINGLE PAIN Source: patient History of Present Illness Date Seen by Provider: Apr 20, 2018 Time Seen by Provider: 03:10 Initial Comments PT ARRIVES VIA POV FROM HOME--DROVE SELF HERE C/O "SHINGLES" TO RIGHT SIDE OF FACE STATES SHE BEGAN HAVING HEADACHE LAST Wednesday04/13/18, THEN BEGAN HAVING PAIN AND HYPERSENSITIVITY TO RIGHT SIDE OF FACE, ESPECIALLY FOREHEAD AND AROUND RIGHT EYE AND WAS SEEN BY DR. LEAL ON Wednesday04/15/18 PT STATES HE DID LAB AND THOUGHT SHE HAD INFLAMMATION OF HER "OPTIC NERVE" AND WAS PRESCRIBED PREDNISONE, WHICH SHE HAS FINISHED STATES SHE STARTED HAVING A RASH TO RIGHT SIDE OF HER FACE IN THE AREA OF PAIN AND KNEW AT THAT POINT SHE LIKELY HAD SHINGLES--HAS NEVER HAD BEFORE, BUT HER MOTHER HAS HAD IT AND THIS IS THE SAME. TALKED WITH DR. LEAL'S NURSE ON WEDNESDAY AND WEDNESDAY OF THIS WEEK AND RX'S FOR ANTIVIRAL ( FAMVIR 500 MG TID) AND UNKNOWN PAIN MEDICATION WERE CALLED IN. STARTED TAKING FAMVIR ON Wednesday04/19/18--HAS TAKEN 2 DOSES SO FAR. STATES RX FOR PAIN MEDICATION WAS NOT READY YET, SO HAS NOT HAD ANY THING FOR PAIN EXCEPT TYLENOL. --NO RELIEF C/O PAINFUL SORES TO RIGHT INSIDE OF MOUTH, BUT NO DIFFICULTY SWALLOWING NOW HAS BLISTERS AND SWELLING TO RIGHT SIDE OF FACE--FOREHEAD, CHEEK, AROUND RIGHT EYE, RIGHT SIDE OF NOSE AND RIGHT UPPER LIP ALSO HAS IT ON RIGHT SIDE OF SCALP. HAS PAIN AROUND RIGHT EAR, AND NOW HAS PAINFUL SWOLLEN LYMPH NODE ON RIGHT SIDE OF NECK. NO PARESTHESIAS OR MOTOR DEFICITS NO FEVER OR RECENT ILLNESS RIGHT SIDE OF NOSE IS CONSTANTLY RUNNING--CLEAR DRAINAGE HAS SOME SLIGHT IRRITATION TO LATERAL ASPECT OF RIGHT EYE, AND SLIGHT WATERING, BUT NO SIGNIFICANT PAIN TO EYEBALL ITSELF, AND NO VISION CHANGES. MAIN COMPLAINT IS OF SEVERE PAIN TO RIGHT SIDE OF FACE AND CANNOT SLEEP DUE TO PAIN PCP: DR. LEAL REHABILITATION ATTENDANT: DR. KAPOOR Allergies and Home Medications Allergies Coded Allergies: Penicillins (Verified Allergy, Mild, RASH, 07/19/13) codeine (Verified Adverse Reaction, Mild, KNOTS IN HER STOMACH, 07/19/13) Home Medications Acetaminophen 500 Mg Tablet, 1,000 MG PO TID PRN for PAIN, (Reported) Acyclovir 5 Gm Cream.gm., 5 GM TP Q 3-4 HOURS Prescribed by: RODRIGO DEL RIO on 04/20/18344 Albuterol Sulfate 8.5 Gm Hfa.aer.ad, 2 PUFF IH Q4H PRN for CONGESTION Prescribed by: NIK LIMA on 01/22/15 1416 Cholecalciferol (Vitamin D3) 2,000 Unit Capsule, 2,000 UNIT PO DAILY, (Reported) Collagenase 30 Gm Oint..gm., TP HS, (Reported) Cyanocobalamin 1,000 Mcg/Ml Inj, 1,000 MCG IJ MONTHLY , (Reported) Diphenhydramine HCl 30 Gm Cream..g., TP DAILY, (Reported) Guaifenesin/Dextromethorphan 5 Ml Syrup, 10 ML PO QID PRN for COUGH, (Reported) Lactobacillus Rhamnosus Gg 1 Each Capsule, 1 EACH PO BID, (Reported) Loratadine 10 Mg Tab, 10 MG PO DAILY, (Reported) Lutein 6 Mg Tablet, 6 MG PO DAILY, (Reported) Multivitamin 1 Each Tablet, 1 TAB PO DAILY, (Reported) Omeprazole 40 Mg Capsule.dr, 40 MG PO HS, (Reported) Prednisone 20 Mg Tab, 40 MG PO DAILY Prescribed by: RODRIGO DEL RIO on 04/20/18344 Pregabalin 75 Mg Capsule, 75 MG PO BID Prescribed by: RODRIGO DEL RIO on 04/20/18344 Primidone 50 Mg Tablet, 100 MG PO HS, (Reported) Propranolol HCl 60 Mg Cap.sa.24h, 60 MG PO DAILY, (Reported) Simvastatin 40 Mg Tablet, 40 MG PO HS, (Reported) Trifluridine 7.5 Ml Soln, 7.5 ML OP UD 1 DROP TO AFFECTED EYE EVERY 2 HOURS WHILE AWAKE Prescribed by: RODRIGO DEL RIO on 04/20/18344 Warfarin Sod 5 Mg Tab, 5 MG PO MO,TUE,KIMBERLY,FRI,SAT, (Reported) Warfarin Sodium 5 Mg Tablet, 7.5 MG PO WED, AND SUN, (Reported) Patient Home Medication List Home Medication List Reviewed: Yes Review of Systems Review of Systems Constitutional: no symptoms reported; No chills, No dizziness, No fever EENTM: see HPI, ear pain, tearing, mouth pain, nose congestion (AND CLEAR RUNNY NOSE ON RIGHT), nose pain; No ear discharge, No hearing loss, No blurred vision, No double vision, No eye pain, No throat pain, No throat swelling Respiratory: no symptoms reported Cardiovascular: no symptoms reported Gastrointestinal: no symptoms reported Genitourinary: no symptoms reported Musculoskeletal: see HPI Skin: see HPI Psychiatric/Neurological: See HPI, Headache; Denies Numbness, Denies Paresthesia, Denies Seizure, Denies Tingling, Denies Tremors, Denies Weakness Endocrine: No Symptoms Reported Hematologic/Lymphatic: No Symptoms Reported Past Szhvilg-Oixefm-Vywold Hx Patient Social History Alcohol Use: Denies Use Recreational Drug Use: No Smoking Status: Never a Smoker 2nd Hand Smoke Exposure: Yes Recent Foreign Travel: No Contact w/Someone Who Travel: No Recent Infectious Disease Expo: No Recent Hopitalizations: No Immunizations Up To Date Tetanus Booster (TDap): Less than 5yrs Date of Pneumonia Vaccine: Feb 07, 2011 Date of Influenza Vaccine: Feb 07, 2014 Seasonal Allergies Seasonal Allergies: No Past Medical History Surgeries: Yes (DILATION AND STENTS OF BILE DUCT, COLONOSCOPY, EGD/ESOPHAGEAL DILATION) Abdominal, Appendectomy, Gallbladder, Tonsillectomy Respiratory: Yes (BENIGN LEFT PULMONARY NODULE) Pulmonary Embolism Cardiac: Yes (DVT LEFT LEG) Deep Vein Thrombosis, High Cholesterol, Hypertension Neurological: Yes (INTENTION TREMOR, VERA'S PALSY) : No 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 Disorders: No 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 History: Menopausal Genitourinary: Yes Kidney Stones Gastrointestinal: Yes (ESOPHAGEAL STRICTURE/DILATION, BILIARY STENT FOR CHOLEDOCHOLITHIASIS) Colitis, Gastroesophageal Reflux, Diverticulosis, C-Diff, Hiatal Hernia, Ulcer, Gall Bladder Disease Musculoskeletal: Yes Arthritis Endocrine: No HEENT: No Cancer: No Psychosocial: No Integumentary: No Blood Disorders: Yes (ANEMIA, FACTOR II MUTATION POSITIVE / COAGULOPATHY) Family Medical History Cancer (grandmother breast ca great grandmother bone cancer brother leukemia) Cataract (grand grandparents ) Chest pain (grandmother ) Family history: Allergy 09 BROTHER Family history: Arthritis (mother has ra) 03 MOTHER Family history: Cardiovascular disease 03 FATHER Family history: Diabetes mellitus (uncle ) Family history: Glaucoma (grandparents ) Family history: Hypertension 03 MOTHER Family history: Osteoporosis 03 MOTHER Headache 03 MOTHER Heart disease (uncle ) 03 FATHER History of - anemia (grandmother and mother ) 03 MOTHER Kidney disease (brother had kidney stones ) Myocardial infarction 03 FATHER Prostate cancer (grandfather) Stroke 09 BROTHER Visual impairment No Family History of: Abdominal aortic aneurysm Kentrell's disease Alcoholism Aphasia Cancer of colon Congenital heart disease Congestive heart failure Cystic fibrosis Dementia Dysphagia Family history: Alzheimer's disease Family history: Asthma Family history: Breast disease Family history: Coronary thrombosis Family history: Gastrointestinal disease Family history: Thyroid disorder Hearing loss Hereditary disease History of - disorder History of - respiratory disease History of drug abuse Human immunodeficiency virus (HIV) seropositivity Hypercholesterolemia Infertile Malignant neoplasm of lung Parkinson's disease Psychotic disorder Seizure disorder Tuberculosis Physical Exam Vital Signs Vital Signs - First Documented 04/20/18 03:08 Temp 96.7 Pulse 85 Resp 18 B/P (MAP) 134/97 (109) Pulse Ox 97 O2 Delivery Room Air Capillary Refill : Less Than 3 Seconds General Appearance: WD/WN, no apparent distress HEENT: PERRL/EOMI, TMs normal, other (CONJUNCTIVAL INFLAMMATION TO LATERAL ASPECT OF RIGHT EYE. NO CORNEAL LESIONS, MILD WATERING OF RIGHT EYE. NO PURULENT DRAINAGE. HAS SOME ULCERATIONS TO RIGHT BUCCAL MUCOSA, AND RIGHT UPPER GUMS/INSIDE OF RIGHT UPPER LIP. ) Neck: supple, lymphadenopathy (R) (ANTERIOR CERVICAL NODES--TENDER TO PALPATION. 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 INCLUDING RIGHT SIDE OF NOSE BUT NO DEFIITE LESIONS TO TIP OF NOSE, BUT DOES INVOLVE RIGHT NARE--LOWER ASPECT AND NASOLABIAL AREA. DOES NOT APPEAR TO INVOLVE RIGHT MANDIBULAR AREA OR CHIN, OR NECK, OR RIGHT EAR OR POST AURUCULAR AREA. HAS MILD TO MODERATE SWELLING OF RIGHT SIDE OF FACE TO INVOLVED AREAS. PT IS ABLE TO OPEN AND CLOSE RIGHT EYE. ) Skin Problem Location: face, scalp Progress/Results/Core Measures Results/Orders My Orders Orders - RODRIGO DEL RIO DO Ketorolac Injection (Toradol Injection) (04/20/18 03:30) Rx-Tramadol Hcl (Rx-Ultram) (04/20/18 03:28) Prednisone Tablet (Deltasone Tablet) (04/20/18 03:45) Prednisone Tablet (Deltasone Tablet) (04/20/18 03:37) Medications Given in ED Current Medications Medications Dose Ordered Sig/Patricia Route Start Time Stop Time Status Last Admin Dose Admin Ketorolac Tromethamine 60 mg ONCE ONCE IM 04/20/18 03:30 04/20/18 03:31 DC 04/20/18 03:42 60 MG Prednisone 60 mg ONCE ONCE PO 04/20/18 03:45 04/20/18 03:46 DC 04/20/18 03:42 60 MG Vital Signs/I&O 04/20/18 04/20/18 03:08 03:54 Temp 96.7 96.7 Pulse 85 85 Resp 18 18 B/P (MAP) 134/97 (109) 134/97 (109) Pulse Ox 97 97 O2 Delivery Room Air Blood Pressure Mean: 109 Departure Impression Primary Impression: HERPES ZOSTER RIGHT FACE Additional Impression: Herpes zoster conjunctivitis, right eye Disposition: 01 HOME, SELF-CARE Condition: Stable Departure-Patient Inst. Referrals: JAMES LEAL DO (PCP/Family) Primary Care Physician Patient Instructions: Shingles (DC) Add. Discharge Instructions: DO NOT RUB EYE TAKE FAMVIR PRESCRIBED USE YOUR CLARITIN D PRESCRIBED YOU MAY TAKE AN ADDITIONAL BENADRYL 50 MG AT BEDTIME NEEDED FOR RUNNY NOSE GET YOUR PRESCRIPTION FOR PAIN MEDICATION FILLED IN THE MORNING AND TAKE DIRECTED FOLLOW UP WITH WITH DR. KAPOOR, YOUR EYE , TODAY FOLLOW UP WITH DR. LEAL THIS WEEK FOR FURTHER CARE RETURN TO ER IF WORSE All discharge instructions reviewed with patient and/or family. Voiced understanding. Scripts Acyclovir (Zovirax) 5 Gm Cream.gm. 5 GM TP Q 3-4 HOURS, #1 TUBE 2 Refills Prov: RODRIGO DEL RIO DO 04/20/18 Trifluridine (Viroptic) 7.5 Ml Soln 7.5 ML OP UD, #1 EA 1 DROP TO AFFECTED EYE EVERY 2 HOURS WHILE AWAKE Prov: RODRIGO DEL RIO DO 04/20/18 Pregabalin (Lyrica) 75 Mg Capsule 75 MG PO BID, #30 CAP Prov: RODRIGO DEL RIO DO 04/20/18 Prednisone (Prednisone) 20 Mg Tab 40 MG PO DAILY, #6 TAB Prov: RODRIGO DEL RIO DO 04/20/18 Images Head/Face 1 - Rash, Swelling, Tenderness RODRIGO DEL RIO DO Apr 20, 2018 03:43
[2018-04-20] MEDS ORDERED: predniSONE 20 MG TAB PO ONE (03:45)
[2018-04-20] MEDS ORDERED: PREG75CA PO (03:45)
[2018-04-20] MEDS ORDERED: ACYC5CRE2 TP (03:45)
[2018-04-20] MEDS ORDERED: PRD20T PO (03:45)
[2018-04-20] MEDS ORDERED: [UNRECOGNIZED DRUG - OTHER] OP (03:45)
[2018-04-20 03:54] VITALS: BP 134/97
== END 2018-04-20 03:50 | disposition home or self-care (01) ==
LOC: EDUNIT# 03:01 → ER 03:03
DX: B02.31 Zoster conjunctivitis (principal); E78.00 Pure hypercholesterolemia, unspecified; I10 Essential (primary) hypertension; K21.9 Gastro-esophageal reflux disease without esophagitis; D64.9 Anemia, unspecified; Z86.19 Personal history of other infectious and parasitic diseases; Z80.3 Family history of malignant neoplasm of breast; Z80.8 Family history of malignant neoplasm of other organs or systems; Z82.49 Family history of ischemic heart disease and other diseases of the circulatory system; Z87.19 Personal history of other diseases of the digestive system; Z87.442 Personal history of urinary calculi; Z88.0 Allergy status to penicillin; Z88.5 Allergy status to narcotic agent; Z79.51 Long term (current) use of inhaled steroids; Z79.01 Long term (current) use of anticoagulants; Z79.52 Long term (current) use of systemic steroids; Z77.22 Contact with and (suspected) exposure to environmental tobacco smoke (acute) (chronic); Z90.49 Acquired absence of other specified parts of digestive tract; Z90.89 Acquired absence of other organs; Z98.890 Other specified postprocedural states; Z86.711 Personal history of pulmonary embolism; Z86.718 Personal history of other venous thrombosis and embolism
CPT/HCPCS: 96372; 99284

== ENCOUNTER → 2018-11-08 | Outpatient (CLI) | payer BC ==
[~2018-11-08] MED LIST changes: +ACYC5CRE2 TP; +FAMC500T17; +GABA-488; +PRD20T PO; +PREG75CA PO; +[UNRECOGNIZED DRUG - OTHER] OP
--- NOTE | 2018-11-08 16:41 | Diagnostic Imaging Report ---
INDICATION: Screening. TECHNIQUE: The current study was also evaluated with a Computer Aided Detection (CAD) system. 3D Tomographic imaging was also performed. COMPARISON: 02/08/2017, 08/25/2016, 01/15/2016, and 12/11/2014. FINDINGS: There are scattered fibroglandular densities bilaterally. There are a few benign type calcifications. There is a new cluster of microcalcifications in the lateral aspect of the left CC projection. There is no dominant mass or spiculated lesion. The skin, nipples, and axillae are unremarkable. IMPRESSION: There is a cluster of microcalcifications in the lateral aspect of the left breast in the CC projection. These should be further characterized with magnification compression views. ACR BI-RADS Category 0: Incomplete. (Needs additional imaging evaluation). Result letter will be mailed to the patient. Note: At least 10% of breast cancer is not imaged by mammography. Dictated by: Dictated on workstation # [id number]
== END ==
LOC: RAD 15:26
PROVIDERS: ATTEND Nurse Practitioner Family
DX: Z12.31 Encounter for screening mammogram for malignant neoplasm of breast (principal); R92.0 Mammographic microcalcification found on diagnostic imaging of breast
CPT/HCPCS: 77067

== ENCOUNTER → 2018-12-07 | Outpatient (CLI) | payer BC ==
--- NOTE | 2018-12-07 19:07 | Diagnostic Imaging Report ---
INDICATION: Left breast calcifications. Patient presents for additional views. COMPARISON: Correlation is made with screening study from 11/08/2018. EXAMINATION: Unilateral left 2D and 3D diagnostic mammography was performed including magnification CC and ML as well as conventional 90 degree lateral views. FINDINGS: Clustered microcalcifications in the upper and outer aspect of the left breast at posterior depth are noted. Calcifications appear to be fairly coarse and punctate and likely benign. No associated soft tissue mass is seen. No definite pleomorphism or branching is seen. IMPRESSION: Calcifications in the upper outer left breast at posterior depth are likely benign. Even so, followup left mammogram in six months is recommended to show stability. ACR BI-RADS Category 3: Probably benign findings. Result letter will be mailed to the patient. Note: At least 10% of breast cancer is not imaged by mammography. Dictated by: Dictated on workstation # [id number]
== END ==
LOC: RAD 14:00
PROVIDERS: ATTEND Internal Medicine
DX: R92.1 Mammographic calcification found on diagnostic imaging of breast (principal)

== ENCOUNTER → 2019-01-10 | Outpatient (CLI) | payer BC ==
--- NOTE | 2019-01-10 13:10 | Diagnostic Imaging Report ---
PROCEDURE: CT abdomen and pelvis without contrast. TECHNIQUE: Multiple contiguous axial images were obtained through the abdomen and pelvis without the use of intravenous contrast. Auto Exposure Controls were utilized during the CT exam to meet ALARA standards for radiation dose reduction. INDICATION: Abdominal pain and constipation. COMPARISON: Comparison is made to study of 08/21/2017. FINDINGS: Wcglhdgc-vr-[id number] hiatal hernia is present. There is an approximately 1 cm circumscribed nodule in the lower lobe of the left lung. This was present on previous study of 01/23/2015. Unenhanced images of the liver and spleen reveal no focal abnormality. There is no evidence of gallbladder fossa abnormality or pancreatic lesion. Adrenal glands are unremarkable. There are several nonobstructing renal stones which were 0.4 cm in diameter. There is no hydronephrosis or hydroureter. There is questionable hyperdensity within the distal left ureter measuring approximately 0.2 cm in size. There is no evidence of free fluid within the abdomen or pelvis. There is no evidence of appendiceal inflammation. Extensive diverticular disease is again noted throughout the sigmoid colon. There does appear to be associated smooth muscle hypertrophy. There may be minimal surrounding edema and/or inflammation. Unopacified bladder is unremarkable. Lower lumbar degenerative facet disease is noted with grade 1 anterolisthesis of L4 on L5. IMPRESSION: Nonobstructing bilateral renal stones with possible minimal calcification within the nondilated distal left ureter. No urinary tract or gastrointestinal obstruction is identified. There is extensive sigmoid diverticular disease again noted with possible mild associated diverticulitis. Dictated by: Dictated on workstation # [id number]
== END ==
LOC: RAD 12:14
PROVIDERS: ATTEND Nurse Practitioner Family
DX: N20.0 Calculus of kidney (principal); K57.30 Diverticulosis of large intestine without perforation or abscess without bleeding; K59.02 Outlet dysfunction constipation
CPT/HCPCS: 74176

== ENCOUNTER → 2019-11-01 | Outpatient (CLI) | payer BC ==
[~2019-11-01] MED LIST changes: -FAMC500T17; +FAMC500T2; +OMEP40CA27 PO; -OMEP40CA36 PO; +SIMV40TA25 PO; -SIMV40TA4 PO; -WARF5TAB PO; +WARF5TAB2 PO
--- NOTE | 2019-11-01 19:47 | Diagnostic Imaging Report ---
EXAMINATION: Right hand radiographs, 3 views. Left hand radiographs, 3 views. COMPARISON: None. HISTORY: 69-year-old female, bilateral hand pain. FINDINGS: There is severe osteoarthritis of the first carpometacarpal joint on the left. There is also severe osteoarthritis of the right first carpometacarpal joint. There are also areas of well-corticated ossification adjacent to both first carpometacarpal joints compatible with chronic long-standing etiology. The additional joint spaces are well preserved. There is no bone erosion. There is no chondrocalcinosis. There is no periosteal reaction or bone ankylosis. There is no identified acute fracture. 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 Dictated by: Dictated on workstation # [id number]
== END ==
LOC: RAD 13:08
PROVIDERS: ATTEND Internal Medicine
DX: M18.0 Bilateral primary osteoarthritis of first carpometacarpal joints (principal)

== ENCOUNTER → 2020-01-11 | Outpatient (CLI) | payer BC ==
--- NOTE | 2020-01-11 11:10 | Diagnostic Imaging Report ---
EXAMINATION: Ultrasound left breast Limited. INDICATION: Abnormal mammogram The diagnostic mammogram performed earlier today noted a small area of slightly increased density in the medial aspect of the left breast at posterior depth. This finding is felt to be related to superimposition. On this study there is no discrete solid or cystic mass evident in this area. I do suspect that the density seen on mammogram was related to superimposition. I would recommend that the patient have follow-up six-month mammogram for further evaluation of the benign-appearing calcifications in the left breast. The small area of increased density seen only on the medial view of the mammogram could also be further evaluated. IMPRESSION: There is no evidence of malignancy. Recommendations as above. ACR category 3 ACR BI-RADS Category 3: Probably benign findings. Dictated by: Dictated on workstation # [id number]
--- NOTE | 2020-01-11 19:57 | Diagnostic Imaging Report ---
INDICATION: Microcalcifications. At this time there are no current complaints. EXAMINATION: Bilateral breast digital diagnostic mammogram with CAD. 3D tomographic images were obtained and reviewed. The current study was also evaluated with a Computer Aided Detection (CAD) system. COMPARISON: This study was compared to the prior exam of 11/08/2018, 02/08/2017 and 01/15/2016. FINDINGS: The previous exam of 12/07/2018 did note a few benign-appearing calcifications in the upper outer aspect of the left breast. Those calcifications are again evident on this study and do not appear to have changed significantly. I do suspect that they are benign. Even so, a short-term (6 month) follow-up mammogram of the left breast would be recommended for continued evaluation. There are scattered fibroglandular densities in both breasts which could obscure a lesion. On the craniocaudal view in the medial aspect of the left breast there is a small asymmetry in the posterior half of the breast. The tomographic view suggests this may be secondary to superimposition of vascular structures. The compression view of this area shows no definite abnormality. Even so, I would recommend that ultrasound be performed for further study. IMPRESSION: 1. The microcalcifications in the left breast appear stable and are most likely benign. Recommendations as above. 2. Ultrasound would be recommended for further evaluation of the small asymmetry in the medial aspect of the left breast. 3. There is no evidence for malignancy involving the right breast. ACR BI-RADS Category 0: Incomplete. (Needs additional imaging evaluation). Result letter will be mailed to the patient. Note: At least 10% of breast cancer is not imaged by mammography. Dictated by: Dictated on workstation # [id number]
== END ==
LOC: RAD 08:15
PROVIDERS: ATTEND Internal Medicine
DX: R92.8 Other abnormal and inconclusive findings on diagnostic imaging of breast (principal)
CPT/HCPCS: 76642; 77066; G0279; 77062

== ENCOUNTER 2020-04-30 12:37 | Emergency (ER) | payer BC ==
[~2020-04-30] VITALS: Ht 170.1 cm; Wt 84.0 kg
[2020-04-30 13:37] LABS: BILIRUBIN,URINE NEGATIVE (NEGATIVE); CLARITY,URINE CLEAR; COLOR,URINE YELLOW; GLUCOSE, URINE (UA) NEGATIVE (NEGATIVE); KETONES,URINE TRACE (NEGATIVE); LEUKOCYTE ESTERASE ,URINE NEGATIVE (NEGATIVE); NITRITE,URINE NEGATIVE (NEGATIVE); PH,URINE 5.5 (5-9); PROTEIN,URINE NEGATIVE (NEGATIVE)
[2020-04-30 13:47] LABS: BACTERIA,URINE NEGATIVE /HPF; RBC,URINE 25-50 /HPF
--- NOTE | 2020-04-30 15:30 | NUR ---
BLOOD DRAWN BY LAB.
[2020-04-30 15:40] LABS: BASOPHILS # (AUTO) 0.1 10^3/uL (0.0-0.1); BASOPHILS % (AUTO) 1 % (0-10); EOSINOPHILS # (AUTO) 0.2 10^3/uL (0.0-0.3); EOSINOPHILS % (AUTO) 2 % (0-10); HEMATOCRIT 45 % (35-52); HEMOGLOBIN 14.7 g/dL (11.5-16.0); LYMPHOCYTES # (AUTO) 2.3 10^3/uL (1.0-4.0); LYMPHOCYTES % (AUTO) 27 % (12-44); MEAN CORPUSCULAR HEMOGLOBIN 30 pg (25-34); MEAN CORPUSCULAR HGB CONC 33 g/dL (32-36); MEAN CORPUSCULAR VOLUME 91 fL (80-99); MONOCYTES # (AUTO) 0.5 10^3/uL (0.0-1.0); MONOCYTES % (AUTO) 6 % (0-12); NEUTROPHILS # (AUTO) 5.5 10^3/uL (1.8-7.8); NEUTROPHILS % (AUTO) 63 % (42-75); PLATELET COUNT 285 10^3/uL (130-400); WHITE BLOOD COUNT 8.6 10^3/uL (4.3-11.0)
[2020-04-30 15:45] LABS: CHLORIDE 103 MMOL/L (98-107); POTASSIUM 4.6 MMOL/L (3.6-5.0); SODIUM 137 MMOL/L (135-145)
[2020-04-30 15:46] LABS: CALCIUM 9.4 MG/DL (8.5-10.1)
[2020-04-30 15:48] LABS: GLUCOSE 101 MG/DL (70-105); TOTAL PROTEIN 6.5 GM/DL (6.4-8.2)
[2020-04-30 15:49] LABS: BILIRUBIN,TOTAL 0.4 MG/DL (0.1-1.0); CARBON DIOXIDE 26 MMOL/L (21-32); INR 1.3 (0.8-1.4); PROTHROMBIN TIME PATIENT 16.6 SEC (12.2-14.7)
[2020-04-30 15:51] LABS: ALKALINE PHOSPHATASE 80 U/L (40-136); CREATININE SERUM 0.71 MG/DL (0.60-1.30); GFR ESTIMATED > 60
[2020-04-30 15:52] LABS: BUN/CREATININE RATIO 17
[2020-04-30 15:54] LABS: ALANINE AMINOTRANSFERASE 19 U/L (0-55)
--- NOTE | 2020-04-30 16:02 | ED GU-Female ---
General Chief Complaint: Abdominal/GI Problems Stated Complaint: WEAKNESS, LOWER ABD PRESSURE Nursing Triage Note: AMB TO ED C/O LOW ABD PRESSURE THINKS SHE MAY HAVE A UTI ALSO CONCEREN THAT SAW SOMETHING BLACK IN STOOL AFTER URINATED CONCERN IT MAY BE A KIDNEY STONE. TOOK A CIPRO SHE HAD LEFT. Nursing Sepsis Screen: No Definite Risk Source: patient Exam Limitations: no limitations History of Present Illness Date Seen by Provider: Apr 30, 2020 Time Seen by Provider: 12:45 Initial Comments This 70-year-old woman presents to the emergency room with complaints of a fairly sudden pelvic pressure that started this morning. She urinated while experiencing this sensation and found a small black object in the stool maybe a few millimeters in diameter. She thought perhaps this was a blood clot or a kidney stone. At that time she also felt hot, weak, and clammy. The dysuria felt like thick urine passing from the urethra. The sensation passed after urinating and she describes a minimal discomfort at present but nothing like the intense pressure she felt before. She denies ever having any sharp pain or noticing any roz blood or blood on the tissue. She does not have a history of kidney stones but does have a history of prior urinary tract infections. She also takes warfarin due to prior blood clot. She has not had her INR checked in about 2 months. Allergies and Home Medications Allergies Coded Allergies: Penicillins (Verified Allergy, Mild, RASH, 07/19/13) codeine (Verified Adverse Reaction, Mild, KNOTS IN HER STOMACH, 07/19/13) Home Medications Acetaminophen 500 Mg Tablet, 1,000 MG PO TID PRN for PAIN, (Reported) Acyclovir 5 Gm Cream.gm., 5 GM TP Q 3-4 HOURS Prescribed by: RODRIGO DEL RIO on 04/20/18 0345 Albuterol Sulfate 8.5 Gm Hfa.aer.ad, 2 PUFF IH Q4H PRN for CONGESTION Prescribed by: NIK LMIA on 01/22/15 1416 Cholecalciferol (Vitamin D3) 2,000 Unit Capsule, 2,000 UNIT PO DAILY, (Reported) Collagenase 30 Gm Oint..gm., TP HS, (Reported) Cyanocobalamin 1,000 Mcg/Ml Inj, 1,000 MCG IJ MONTHLY , (Reported) Diphenhydramine HCl 30 Gm Cream..g., TP DAILY, (Reported) Guaifenesin/Dextromethorphan 5 Ml Syrup, 10 ML PO QID PRN for COUGH, (Reported) Lactobacillus Rhamnosus Gg 1 Each Capsule, 1 EACH PO BID, (Reported) Loratadine 10 Mg Tab, 10 MG PO DAILY, (Reported) Lutein 6 Mg Tablet, 6 MG PO DAILY, (Reported) Multivitamin 1 Each Tablet, 1 TAB PO DAILY, (Reported) Omeprazole 40 Mg Capsule.dr, 40 MG PO HS, (Reported) Prednisone 20 Mg Tab, 40 MG PO DAILY Prescribed by: RODRIGO DEL RIO on 04/20/18344 Pregabalin 75 Mg Capsule, 75 MG PO BID Prescribed by: RODRIGO DEL RIO on 04/20/18344 Primidone 50 Mg Tablet, 100 MG PO HS, (Reported) Propranolol HCl 60 Mg Cap.sa.24h, 60 MG PO DAILY, (Reported) Simvastatin 40 Mg Tablet, 40 MG PO HS, (Reported) Trifluridine 7.5 Ml Soln, 7.5 ML OP UD 1 DROP TO AFFECTED EYE EVERY 2 HOURS WHILE AWAKE Prescribed by: RODRIGO DEL RIO on 04/20/18344 Warfarin Sod 5 Mg Tab, 5 MG PO MO,TUE,KIMBERLY,FRI,SAT, (Reported) Warfarin Sodium 5 Mg Tablet, 7.5 MG PO WED, AND SUN, (Reported) Patient Home Medication List Home Medication List Reviewed: Yes Review of Systems Review of Systems Constitutional: see HPI EENTM: no symptoms reported Respiratory: no symptoms reported Cardiovascular: no symptoms reported Gastrointestinal: see HPI Genitourinary: see HPI : No Musculoskeletal: no symptoms reported Skin: no symptoms reported Psychiatric/Neurological: No Symptoms Reported Endocrine: No Symptoms Reported Hematologic/Lymphatic: See HPI Past Gomyupr-Kcwoej-Vhkawm Hx Past Med/Social Hx: Reviewed Nursing Past Med/Soc Hx Patient Social History Alcohol Use: Denies Use Recreational Drug Use: No Smoking Status: Never a Smoker 2nd Hand Smoke Exposure: Yes Recent Foreign Travel: No Contact w/Someone Who Travel: No Recent Infectious Disease Expo: No Recent Hopitalizations: No Immunizations Up To Date Tetanus Booster (TDap): Less than 5yrs Date of Pneumonia Vaccine: Feb 07, 2011 Date of Influenza Vaccine: Feb 07, 2014 Seasonal Allergies Seasonal Allergies: No Past Medical History Surgeries: Yes (DILATION AND STENTS OF BILE DUCT, COLONOSCOPY, EGD/ESOPHAGEAL DILATION) Abdominal, Appendectomy, Gallbladder, Tonsillectomy Respiratory: Yes (BENIGN LEFT PULMONARY NODULE) Pulmonary Embolism Cardiac: Yes (DVT LEFT LEG) Deep Vein Thrombosis, High Cholesterol, Hypertension Neurological: Yes (INTENTION TREMOR, VERA'S PALSY) 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 Disorders: No ABLE SEAMAN History: Menopausal Genitourinary: Yes Kidney Stones Gastrointestinal: Yes (ESOPHAGEAL STRICTURE/DILATION, BILIARY STENT FOR CHOLEDOCHOLITHIASIS) Colitis, Gastroesophageal Reflux, Diverticulosis, C-Diff, Hiatal Hernia, Ulcer, Gall Bladder Disease Musculoskeletal: Yes Arthritis Endocrine: No HEENT: No Cancer: No Psychosocial: No Integumentary: No Blood Disorders: Yes (ANEMIA, FACTOR II MUTATION POSITIVE / COAGULOPATHY) Family Medical History Cancer (grandmother breast ca great grandmother bone cancer brother leukemia) Cataract (grand grandparents ) Chest pain (grandmother ) Family history: Allergy 09 BROTHER Family history: Arthritis (mother has ra) 03 MOTHER Family history: Cardiovascular disease 03 FATHER Family history: Diabetes mellitus (uncle ) Family history: Glaucoma (grandparents ) Family history: Hypertension 03 MOTHER Family history: Osteoporosis 03 MOTHER Headache 03 MOTHER Heart disease (uncle ) 03 FATHER History of - anemia (grandmother and mother ) 03 MOTHER Kidney disease (brother had kidney stones ) Myocardial infarction 03 FATHER Prostate cancer (grandfather) Stroke 09 BROTHER Visual impairment No Family History of: Abdominal aortic aneurysm Kentrell's disease Alcoholism Aphasia Cancer of colon Congenital heart disease Congestive heart failure Cystic fibrosis Dementia Dysphagia Family history: Alzheimer's disease Family history: Asthma Family history: Breast disease Family history: Coronary thrombosis Family history: Gastrointestinal disease Family history: Thyroid disorder Hearing loss Hereditary disease History of - disorder History of - respiratory disease History of drug abuse Human immunodeficiency virus (HIV) seropositivity Hypercholesterolemia Infertile Malignant neoplasm of lung Parkinson's disease Psychotic disorder Seizure disorder Tuberculosis Physical Exam Vital Signs Vital Signs - First Documented 04/30/20 04/30/20 12:45 16:24 Temp 36.3 Pulse 63 Resp 18 B/P (MAP) 115/69 Pulse Ox 100 Capillary Refill : Less Than 3 Seconds Height, Weight, BMI Height: 5'7.00" Weight: 175lbs. 0oz. 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, no motor/sensory deficits, alert, normal mood/affect, oriented x 3 Skin: normal color, warm/dry Progress/Results/Core Measures Suspected Sepsis Recent Fever Within 48 Hours: No Infection Criteria Present: None New/Unexplained Altered Menta: No Sepsis Screen: No Definite Risk SIRS Temperature: Pulse: 63 Respiratory Rate: Laboratory Tests 04/30/20 15:25: White Blood Count 8.6 Blood Pressure / Mean: Laboratory Tests 04/30/20 15:25: Creatinine 0.71, INR Comment 1.3, Platelet Count 285, Total Bilirubin 0.4 Results/Orders Lab Results Laboratory Tests Test 04/30/20 13:31 04/30/20 15:25 Range/Units Urine Color YELLOW Urine Clarity CLEAR Urine pH 5.5 5-9 Urine Specific [place] >=1.030 1.016-1.022 Urine Protein NEGATIVE NEGATIVE Urine Glucose (UA) NEGATIVE NEGATIVE Urine Ketones TRACE H NEGATIVE Urine Nitrite NEGATIVE NEGATIVE Urine Bilirubin NEGATIVE NEGATIVE Urine Urobilinogen 0.2 < = 1.0 MG/DL Urine Leukocyte Esterase NEGATIVE NEGATIVE Urine RBC (Auto) 3+ H NEGATIVE Urine RBC 25-50 H /HPF Urine WBC NONE /HPF Urine Squamous Epithelial Cells 2-5 /HPF Urine Crystals NONE /LPF Urine Bacteria NEGATIVE /HPF Urine Casts NONE /LPF Urine Mucus NEGATIVE /LPF Urine Culture Indicated NO White Blood Count 8.6 4.3-11.0 10^3/uL Red Blood Count 4.93 3.80-5.11 10^6/uL Hemoglobin 14.7 11.5-16.0 g/dL Hematocrit 45 35-52 % Mean Corpuscular Volume 91 80-99 fL Mean Corpuscular Hemoglobin 30 25-34 pg Mean Corpuscular Hemoglobin Concent 33 32-36 g/dL Red Cell Distribution Width 12.3 10.0-14.5 % Platelet Count 285 130-400 10^3/uL Mean Platelet Volume 11.0 9.0-12.2 fL Immature Granulocyte % (Auto) 1 % Neutrophils (%) (Auto) 63 42-75 % Lymphocytes (%) (Auto) 27 12-44 % Monocytes (%) (Auto) 6 0-12 % Eosinophils (%) (Auto) 2 0-10 % Basophils (%) (Auto) 1 0-10 % Neutrophils # (Auto) 5.5 1.8-7.8 10^3/uL Lymphocytes # (Auto) 2.3 1.0-4.0 10^3/uL Monocytes # (Auto) 0.5 0.0-1.0 10^3/uL Eosinophils # (Auto) 0.2 0.0-0.3 10^3/uL Basophils # (Auto) 0.1 0.0-0.1 10^3/uL Immature Granulocyte # (Auto) 0.1 0.0-0.1 10^3/uL Prothrombin Time 16.6 H 12.2-14.7 SEC INR Comment 1.3 0.8-1.4 Sodium Level 137 135-145 MMOL/L Potassium Level 4.6 3.6-5.0 MMOL/L Chloride Level 103 98-107 MMOL/L Carbon Dioxide Level 26 21-32 MMOL/L Anion Gap 8 5-14 MMOL/L Blood Urea Nitrogen 12 7-18 MG/DL Creatinine 0.71 0.60-1.30 MG/DL Estimat Glomerular Filtration Rate > 60 BUN/Creatinine Ratio 17 Glucose Level 101 70-105 MG/DL Calcium Level 9.4 8.5-10.1 MG/DL Corrected Calcium 9.4 8.5-10.1 MG/DL Magnesium Level 2.0 1.6-2.4 MG/DL Total Bilirubin 0.4 0.1-1.0 MG/DL Aspartate Amino Transf (AST/SGOT) 17 5-34 U/L Alanine Aminotransferase (ALT/SGPT) 19 0-55 U/L Alkaline Phosphatase 80 40-136 U/L C-Reactive Protein High Sensitivity 0.06 0.00-0.50 MG/DL Total Protein 6.5 6.4-8.2 GM/DL Albumin 4.0 3.2-4.5 GM/DL My Orders Orders - ALBA OMALLEY MD Cbc With Automated Diff (04/30/20 12:45) Comprehensive Metabolic Panel (04/30/20 12:45) Hs C Reactive Protein (04/30/20 12:45) Magnesium (04/30/20 12:45) Ua Culture If Indicated (04/30/20 12:45) Ed Iv/Invasive Line Start (04/30/20 12:45) Protime With Inr (04/30/20 14:34) Vital Signs/I&O 04/30/20 04/30/20 12:45 16:24 Temp 36.3 Pulse 63 70 Resp 18 B/P (MAP) 115/69 Pulse Ox 100 99 Capillary Refill : Less Than 3 Seconds Progress Note : Progress Note Patient feels much better after urinating and thinks perhaps she passed a kidney stone. We discussed further investigation with a CT scan. Because of her improvement, she elects to forego the CT scan. However, because of her warfarin therapy and hematuria, we did obtain labs including INR. She was found to be subtherapeutic. She was advised to take an extra half a tablet today and then contact her primary care doctor on Wednesday. Departure Impression Primary Impression: Microscopic hematuria Additional Impressions: Pelvic pressure in female Subtherapeutic international normalized ratio (INR) Disposition: 01 HOME, SELF-CARE Condition: Improved Departure-Patient Inst. Decision time for Depature: 16:10 Referrals: JAMES MARAVILLA DO (PCP/Family) Primary Care Physician Patient Instructions: Blood in the Urine (Hematuria) in Adults, Kidney Stones in Adults, Warfarin Add. Discharge Instructions: Drink plenty of clear liquids. Continue your medications as previously prescribed, except take an extra 1/2 tablet of warfarin today. Contact Dr. Maravilla's office on Wednesday morning to inquire about further dosing adjustments of warfarin. Follow-up in Dr. Maravilla's office sometime within the next 2 weeks. You should have a repeat urine sample tested for blood. Persistent blood in the urine could represent significant disease processes such as kidney stone, cancer, etc. Blood in the urine should be followed by your primary care provider. You may continue taking Tylenol (acetaminophen) for your pain. There was no evidence of infection in your urinalysis today. You do not need to continue taking antibiotics. Strain your urine and bring any particulate matter collected to your primary care provider. Return to the emergency room if you have worsening of symptoms or develop new symptoms such as fever. All discharge instructions reviewed with patient and/or family. Voiced understanding. Copy Copies To 1: JAMES MARAVILLA JOSHUA T MD Apr 30, 2020 16:02
[2020-04-30 16:24] VITALS: BP 115/69
== END 2020-04-30 16:24 | disposition home or self-care (01) ==
LOC: EDUNIT# 12:37 → ER 12:39
DX: R31.9 Hematuria, unspecified (principal); R10.2 Pelvic and perineal pain; R79.1 Abnormal coagulation profile; K21.9 Gastro-esophageal reflux disease without esophagitis; I10 Essential (primary) hypertension; E78.00 Pure hypercholesterolemia, unspecified; Z82.49 Family history of ischemic heart disease and other diseases of the circulatory system; Z82.61 Family history of arthritis; Z83.3 Family history of diabetes mellitus; Z80.42 Family history of malignant neoplasm of prostate; Z80.3 Family history of malignant neoplasm of breast; Z80.8 Family history of malignant neoplasm of other organs or systems; Z80.6 Family history of leukemia; Z77.22 Contact with and (suspected) exposure to environmental tobacco smoke (acute) (chronic); Z86.718 Personal history of other venous thrombosis and embolism; Z86.711 Personal history of pulmonary embolism; Z88.5 Allergy status to narcotic agent; Z88.0 Allergy status to penicillin; Z79.01 Long term (current) use of anticoagulants; Z79.52 Long term (current) use of systemic steroids
CPT/HCPCS: 36415; 80053; 81000; 83735; 85025; 85610; 86141

== ENCOUNTER → 2020-07-25 | Outpatient (CLI) | payer MEDICARE ==
--- NOTE | 2020-07-25 13:12 | Diagnostic Imaging Report ---
INDICATION: Six-month followup left breast density. COMPARISON: 01/11/2020 and 11/08/2018. TECHNIQUE: Unilateral left 2D and 3D diagnostic mammography was performed with CAD. FINDINGS: The area of density in the medial posterior aspect of the left breast most likely represents superimposed tissue with a vascular structure. This is stable. No mass or malignant appearing microcalcifications are seen. There are benign calcifications in the left breast. The left axilla is unremarkable. IMPRESSION: Stable left mammogram with no mammographic features suspicious for malignancy. The patient may return to routine annual screening mammography. ACR BI-RADS Category 2: Benign findings. Result letter will be mailed to the patient. Note: At least 10% of breast cancer is not imaged by mammography. Dictated by: Dictated on workstation # [id number]
== END ==
LOC: RAD 12:26
PROVIDERS: ATTEND Internal Medicine
DX: R92.8 Other abnormal and inconclusive findings on diagnostic imaging of breast (principal)
CPT/HCPCS: 77065; G0279

== ENCOUNTER → 2021-02-18 | Outpatient (CLI) | payer MEDICARE ==
[~2021-02-18] MED LIST changes: -OMEP40CA27 PO; +OMEP40CA6 PO; +SULF1TAB38 PO
--- NOTE | 2021-02-18 18:31 | Diagnostic Imaging Report ---
INDICATION: Routine screening. COMPARISON is made with prior mammograms from 01/11/2020 and 11/08/2018. 2-D and 3-D bilateral screening mammography was performed with CAD. Scattered fibroglandular densities are identified bilaterally. The parenchymal pattern is stable. No mass or malignant appearing microcalcifications are seen. Axillae are unremarkable. IMPRESSION: BI-RADS Category 1 No mammographic features suspicious for malignancy are identified. Dictated by: Dictated on workstation # [id number]
== END ==
LOC: RAD 10:15
PROVIDERS: ATTEND Internal Medicine
DX: Z12.31 Encounter for screening mammogram for malignant neoplasm of breast (principal)
CPT/HCPCS: 77063; 77067

== ENCOUNTER 2021-08-31 16:33 | Emergency (ER) | payer MEDICARE ==
[~2021-08-31] VITALS: Ht 167.7 cm; Wt 97.9 kg
--- NOTE | 2021-08-31 17:22 | Diagnostic Imaging Report ---
EXAMINATION: Abdominal radiographs, 2 views, upright and supine. DATE: August 31, 2021. CLINICAL INDICATION: 71-year-old female, constipation. COMPARISON: CT abdomen and pelvis January 10, 2019. COMMENTS: There are oval high attenuation foci projecting over the right acetabulum and L4-L5 which change in position on the provided images. This is likely material external to the patient. There are gas-filled segments of both small and large bowel. There are no abnormally distended gas-filled segments of bowel. There is no identified pneumatosis, portal venous gas or free intraperitoneal air. There is no identified abnormal radiodensity overlying the expected positions of the kidneys or ureters or right lower quadrant. There are degenerative changes of the spine. There is note of nonobstructing renal stones on prior CT which are not radiographically visible on current exam. IMPRESSION: No identified acute abdominal radiographic abnormality. Dictated by: Dictated on workstation # [id number]
[2021-08-31] MEDS ORDERED: HYOSCYAMINE 0.125 MG (LEVSIN) TAB SL ONE (18:15)
[2021-08-31] MEDS ORDERED: HYOS0.1283 SL (18:35)
--- NOTE | 2021-08-31 18:36 | ED GI ---
General Chief Complaint: Abdominal/GI Problems Stated Complaint: MUCUS IN STOOL/CONSTIPATED Nursing Triage Note: PT AMB TO [facility] 5 WITH COMPLAINT OF OF CONSTIPATION AND STRINGY STOOLS FOR 2 WEEKS. HAS NOT TAKEN ANY LAXATIVES. Source of Information: Patient Exam Limitations: No Limitations History of Present Illness Date Seen by Provider: Aug 31, 2021 Time Seen by Provider: 16:44 Initial Comments This is 71-year-old woman presents to the emergency room with complaints of 2 weeks of frequent mucousy stools of low volume. Previously she would alternate between rare stools and frequent stools, but the intense cramping and mucousy nature of stools is new over the past 2 weeks. She feels a frequent pressure to defecate. She has had questionable chills but denies any fever. She has an appointment coming up on September 08. She denies any nausea or vomiting. Abdomen is not tender or distended. She denies any blood or melena. She recently completed a round of Cipro for urinary tract infection. However, the symptoms seem to have started prior to treatment for the UTI. She denies any urinary symptoms of urgency, frequency, or dysuria since taking the Cipro. She does have a prior history of C. difficile. Dr. Maravilla is her primary care provider. She expresses a desire to keep her care minimal at this time because she has a new insurance policy and does not know the details of her coverage. Allergies and Home Medications Allergies Coded Allergies: Penicillins (Verified Allergy, Mild, RASH, 07/19/13) codeine (Verified Adverse Reaction, Mild, KNOTS IN HER STOMACH, 07/19/13) Patient Home Medication List Home Medication List Reviewed: Yes Acetaminophen (Tylenol Extra Strength) 500 Mg Tablet, 1,000 MG PO TID PRN for PAIN, (Reported) Entered as Reported by: JESSICA WARD on 01/24/15 1306 Acyclovir (Zovirax) 5 Gm Cream.gm., 5 GM TP Q 3-4 HOURS Prescribed by: RODRIGO DEL RIO on 04/20/18 0345 Albuterol Sulfate (Proair Hfa) 8.5 Gm Hfa.aer.ad, 2 PUFF IH Q4H PRN for CONGESTION Prescribed by: NIK LIMA on 01/22/15 1416 Cholecalciferol (Vitamin D3) (Vitamin D3) 2,000 Unit Capsule, 2,000 UNIT PO DAILY, (Reported) Entered as Reported by: ABILIO BANEGAS on 05/26/12 1359 Collagenase (Santyl) 30 Gm Oint..gm., TP HS, (Reported) Entered as Reported by: JESSICA WARD on 01/24/15 1302 Cyanocobalamin (Cyanocobalamin Injection) 1,000 Mcg/Ml Inj, 1,000 MCG IJ MONTHLY , (Reported) Entered as Reported by: JESSICA WARD on 01/24/15 1302 Diphenhydramine HCl (Diphenhydramine HCl) 30 Gm Cream..g., TP DAILY, (Reported) Entered as Reported by: JESSICA WARD on 01/24/15 1302 Famciclovir (Famciclovir) 500 Mg Tablet, (Reported) Entered as Reported by: JOSUE CHIU on 04/20/18 031 Gabapentin (Gabapentin) 300 Mg Capsule, (Reported) Entered as Reported by: JOSUE CHIU on 04/20/18 031 Guaifenesin/Dextromethorphan (Guaifenesin Dm Syrup) 5 Ml Syrup, 10 ML PO QID PRN for COUGH, (Reported) Entered as Reported by: JESSICA WARD on 01/24/15 130 Hyoscyamine Sulfate (Levsin-Sl) 0.125 Mg Tab.subl, 1-2 TAB SL Q4H PRN for CRAMPS Prescribed by: ALBA YIP on 08/31/21 1835 Lactobacillus Rhamnosus Gg (Probiotic) 1 Each Capsule, 1 EACH PO BID, (Reported) Entered as Reported by: VICENTE SALDIVAR on 10/01/11 1025 Loratadine (Claritin) 10 Mg Tab, 10 MG PO DAILY, (Reported) Entered as Reported by: ABILIO BANEGAS on 05/26/12 1359 Lutein (Lutein) 6 Mg Tablet, 6 MG PO DAILY, (Reported) Entered as Reported by: ABILIO BANEGAS on 05/26/12 135 Multivitamin (Multi-Vitamin Daily) 1 Each Tablet, 1 TAB PO DAILY, (Reported) Entered as Reported by: ABILIO BANEGAS on 05/26/12 1359 Omeprazole (Omeprazole) 40 Mg Capsule.dr, 40 MG PO HS, (Reported) Entered as Reported by: JESSICA WARD on 01/24/15 1246 Prednisone (Prednisone) 20 Mg Tab, 40 MG PO DAILY Prescribed by: RODRIGO DEL RIO on 04/20/18 0345 Pregabalin (Lyrica) 75 Mg Capsule, 75 MG PO BID Prescribed by: RODRIGO DEL RIO on 04/20/18 0345 Primidone (Mysoline) 50 Mg Tablet, 100 MG PO HS, (Reported) Entered as Reported by: VARINDER GUPTA on 05/19/11 2156 Propranolol HCl (Propranolol HCl ER) 60 Mg Cap.sa.24h, 60 MG PO DAILY, (Reported) Entered as Reported by: JESSICA WARD on 01/24/15 1302 Simvastatin (Simvastatin) 40 Mg Tablet, 40 MG PO HS, (Reported) Entered as Reported by: JESSICA WARD on 01/24/15 1302 Trifluridine (Viroptic) 7.5 Ml Soln, 7.5 ML OP UD Prescribed by: RODRIGO DEL RIO on 04/20/18 034 Warfarin Sod (Coumadin 5 Mg) 5 Mg Tab, 5 MG PO MO,TUE,KIMBERLY,FRI,SAT, (Reported) Entered as Reported by: ELIAS BOUCHER on 05/30/12 1111 Warfarin Sodium (Coumadin) 5 Mg Tablet, 7.5 MG PO WED, AND SUN, (Reported) Entered as Reported by: JESSICA WARD on 01/24/15 1302 Review of Systems Review of Systems Constitutional: see HPI EENTM: No Symptoms Reported Respiratory: No Symptoms Reported Cardiovascular: No Symptoms Reported Gastrointestinal: See HPI Genitourinary: See HPI Musculoskeletal: no symptoms reported Skin: no symptoms reported Psychiatric/Neurological: No Symptoms Reported Endocrine: No Symptoms Reported Past Jmbjhiq-Nsmblx-Uhpodk Hx Patient Social History Tobacco Use?: No Use of E-Cig and/or Vaping dev: No Substance use?: No Alcohol Use?: No Pt feels they are or have been: No Immunizations Up To Date Tetanus Booster (TDap): Less than 5yrs Influenza Vaccine Up-to-Date: Yes; Up-to-Date First/Initial COVID19 Vaccinat: 2020 Second COVID19 Vaccination [place]: 2020 Seasonal Allergies Seasonal Allergies: No Past Medical History Surgeries: Yes (DILATION AND STENTS OF BILE DUCT, COLONOSCOPY, EGD/ESOPHAGEAL DILATION) Abdominal, Appendectomy, Gallbladder, Tonsillectomy Respiratory: Yes (BENIGN LEFT PULMONARY NODULE) Pulmonary Embolism Cardiac: Yes (DVT LEFT LEG) Deep Vein Thrombosis, High Cholesterol, Hypertension Neurological: Yes (INTENTION TREMOR, VERA'S PALSY) 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 History: Menopausal Genitourinary: Yes Kidney Stones Gastrointestinal: Yes (ESOPHAGEAL STRICTURE/DILATION, BILIARY STENT FOR CHOLEDOCHOLITHIASIS) Colitis, Gastroesophageal Reflux, Diverticulosis, C-Diff, Hiatal Hernia, Ulcer, Gall Bladder Disease Musculoskeletal: Yes Arthritis Endocrine: No HEENT: No Cancer: No Psychosocial: No Integumentary: No Blood Disorders: Yes (ANEMIA, FACTOR II MUTATION POSITIVE / COAGULOPATHY) Family Medical History Cancer (grandmother breast ca great grandmother bone cancer brother leukemia) Cataract (grand grandparents ) Chest pain (grandmother ) Family history: Allergy 09 BROTHER Family history: Arthritis (mother has ra) 03 MOTHER Family history: Cardiovascular disease 03 FATHER Family history: Diabetes mellitus (uncle ) Family history: Glaucoma (grandparents ) Family history: Hypertension 03 MOTHER Family history: Osteoporosis 03 MOTHER Headache 03 MOTHER Heart disease (uncle ) 03 FATHER History of - anemia (grandmother and mother ) 03 MOTHER Kidney disease (brother had kidney stones ) Myocardial infarction 03 FATHER Prostate cancer (grandfather) Stroke 09 BROTHER Visual impairment No Family History of: Abdominal aortic aneurysm Durham's disease Alcoholism Aphasia Cancer of colon Congenital heart disease Congestive heart failure Cystic fibrosis Dementia Dysphagia Family history: Alzheimer's disease Family history: Asthma Family history: Breast disease Family history: Coronary thrombosis Family history: Gastrointestinal disease Family history: Thyroid disorder Hearing loss Hereditary disease History of - disorder History of - respiratory disease History of drug abuse Human immunodeficiency virus (HIV) seropositivity Hypercholesterolemia Infertile Malignant neoplasm of lung Parkinson's disease Psychotic disorder Seizure disorder Tuberculosis Physical Exam Vital Signs Vital Signs - First Documented 08/31/21 16:40 Temp 36.3 Pulse 88 Resp 18 B/P (MAP) 136/90 (105) Pulse Ox 100 O2 Delivery Room Air Capillary Refill : Less Than 3 Seconds Height/Weight/BMI Height: 5'7.00" Weight: 175lbs. 0oz. 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 difficile GDH Antigen & Toxins - Final, Complete 08/31/21 Fecal Leukocyte Stain - Final, Resulted 08/31/21 Stool Culture, Resulted Pending My Orders Orders - ALBA OMALLEY MD Abdomen, Flat & Upright/Decub (08/31/21 16:44) Hyoscyamine Sl Tablet (Levsin Sl Tablet) (08/31/21 18:15) Stool Culture (08/31/21 18:08) Fecal Wbc (08/31/21 18:08) C Difficile Ag + Toxin A/B. (08/31/21 18:23) Medications Given in ED Vital Signs/I&O 08/31/21 08/31/21 16:40 18:50 Temp 36.3 36.3 Pulse 88 79 Resp 18 18 B/P (MAP) 136/90 (105) 128/89 Pulse Ox 100 100 O2 Delivery Room Air Room Air Blood Pressure Mean: 105 Progress Progress Note #1: Progress Note X-rays were obtained and there was no evidence of obstruction or constipation. Patient was surprised at this finding as she has a sensation of constipation and pressure around the rectum. We discussed possible etiologies for her symptoms. Among of these were C. difficile colitis from recent antibiotic use, diverticulitis, viral enteritis, etc. She was offered lab work which she declined for reasons stated above. We did obtain a stool specimen which was sent to lab for C. difficile and culture processing. She was advised to follow- up with those results with her PCP next week. Levsin was administered to help with cramping. She was advised to take probiotics and use Levsin for symptom management along with Tylenol. See discharge instructions for further discussion. Progress Note #2: Progress Note At the time of signature of this note at 06:25 on September 02, C. difficile study resulted as negative. Culture was still in process. Diagnostic Imaging Diagonstic Imaging: Xray Plain Films/CT/US/NM/MRI: abdomen, pelvis Comments X-rays reviewed by me and report reviewed. See report below: NAME: KERRY VARELA [facility] REC#: [id number] PT STATUS: REG ER : 1950 PHYSICIAN: ALBA OMALLEY MD ADMIT DATE: 08/31/21/ER Signed Date of Exam:08/31/21 ABDOMEN, FLAT & UPRIGHT/DECUB EXAMINATION: Abdominal radiographs, 2 views, upright and supine. DATE: August 31, 2021. CLINICAL INDICATION: 71-year-old female, constipation. COMPARISON: CT abdomen and pelvis January 10, 2019. COMMENTS: There are oval high attenuation foci projecting over the right acetabulum and L4-L5 which change in position on the provided images. This is likely material external to the patient. There are gas-filled segments of both small and large bowel. There are no abnormally distended gas-filled segments of bowel. There is no identified pneumatosis, portal venous gas or free intraperitoneal air. There is no identified abnormal radiodensity overlying the expected positions of the kidneys or ureters or right lower quadrant. There are degenerative changes of the spine. There is note of nonobstructing renal stones on prior CT which are not radiographically visible on current exam. IMPRESSION: No identified acute abdominal radiographic abnormality. Dictated by: Dictated on workstation # [id number] Dict: 08/31/212 Trans: 08/31/216 [facility] [id number] Interpreted by: HENNY GAINES MD Electronically signed by: HENNY GAINES MD 08/31/21 1726 Departure Impression Primary Impression: Intestinal cramps Additional Impression: Frequent loose stools Qualified Codes: R19.7 - Diarrhea, unspecified Disposition: 01 HOME, SELF-CARE Condition: Stable Departure-Patient Inst. Decision time for Depature: 18:31 Referrals: JAMES MARAVILLA DO (PCP/Family) Primary Care Physician Patient Instructions: Clostridioides difficile ED, Diarrhea in Adolescents and Adults Add. Discharge Instructions: The exact cause of your abdominal cramping and stool changes is uncertain but may be related to an infectious diarrhea which could be caused by viral illness, bacterial illness or parasite. Stool studies will help sort out the cause. You may also have diverticulitis or C. difficile. Use of antibiotics is being deferred until results of the stool studies are known. In the meantime, you may use Tylenol (acetaminophen) up to 1000 mg every 6 hours as needed. Use Levsin (hyoscyamine) as prescribed for bowel cramping and diarrhea. Adhere to a clear liquid diet until tomorrow. If you are feeling better in the morning, gradually advance your diet with small quantities of bland food as tolerated. [place] food to start with may include crackers, bananas, potatoes, etc. Avoid dairy, fatty, and greasy foods for the next several days. If possible, use an [id number] probiotic such as Culturelle 3 times a day until symptoms resolve. Contact Dr. Maravilla's office on Wednesday to follow-up on culture results and for further direction. Return to the emergency room if you have worsening symptoms including escalating pain, development of fever, vomiting, grossly bloody stools, etc. All discharge instructions reviewed with patient and/or family. Voiced understanding. Scripts Hyoscyamine Sulfate (Levsin-Sl) 0.125 Mg Tab.subl 1-2 TAB SL Q4H PRN for CRAMPS, #10 TAB 1 Refill Prov: ALBA OMALLEY MD 08/31/21 Copy Copies To 1: JAMES MARAVILLA JOSHUA T MD Aug 31, 2021 18:35
[2021-08-31 18:50] VITALS: BP 128/89
== END 2021-08-31 18:50 | disposition home or self-care (01) ==
LOC: EDUNIT# 16:33 → ER 16:34
DX: R19.7 Diarrhea, unspecified (principal)
CPT/HCPCS: 74019; 87015; 87045; 87046; 87324; 87449; 87899; 89055

== ENCOUNTER 2021-09-24 12:38 | Outpatient (CLI) | payer MEDICARE ==
[~2021-09-24] VITALS: Ht 167.6 cm; Wt 88.0 kg
[~2021-09-24 12:38] MED LIST changes: +HYOS0.1283 SL
[2021-09-24] MEDS ORDERED: CHOL100048 PO (13:06)
[2021-09-24] MEDS ORDERED: TRIA10.8 NS (13:06)
[2021-09-24] MEDS ORDERED: BIOT10004 PO (13:06)
[2021-09-24] MEDS ORDERED: C,E,1CAP PO (13:06)
[2021-09-24] MEDS ORDERED: NF-CLINGEL TP (13:06)
[2021-09-24] MEDS ORDERED: DICL20GE TP (13:06)
== END 2021-09-24 13:22 | disposition home or self-care (01) ==
LOC: PREOP 12:38
PROVIDERS: ATTEND Internal Medicine
DX: Z01.818 Encounter for other preprocedural examination (principal)

== ENCOUNTER 2021-10-01 07:54 | Outpatient (CLI) | payer MEDICARE ==
[~2021-10-01] VITALS: Ht 167.6 cm; Wt 88.0 kg
[~2021-10-01 07:54] MED LIST changes: +BIOT10004 PO; +C,E,1CAP PO; +CHOL100048 PO; +DICL20GE TP; +NF-CLINGEL TP; +TRIA10.8 NS
[2021-10-01] MEDS ORDERED: OMEP20TA56 PO (08:53)
== END 2021-10-01 13:31 | disposition home or self-care (01) ==
LOC: PREOP 07:54
PROVIDERS: ATTEND Internal Medicine
DX: Z01.818 Encounter for other preprocedural examination (principal)

== ENCOUNTER 2021-10-03 07:45 | Day surgery (SDC) | payer MEDICARE ==
--- NOTE | 2021-09-25 08:57 | HISTORY AND PHYSICAL ---
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 For similar symptoms in the past, I had performed colonoscopy on her in 2013, at which time, several small diverticulum that were noted. Subsequent CT scans revealed more significant diverticulosis and consideration for diverticulitis in 2019. In her 2014 colonoscopy, she did have patchy colonic erythema and a 10 cm segment of the proximal sigmoid colon that was friable, induration with several shallow ulcers. Biopsies compatible with ischemic colitis at that time and the findings were not associated with diverticular disease. She had no evidence for neoplasia and has not had any subsequent colonoscopic evaluation. She did go to the emergency room but asked for a minimal workup due to an insurance change. They did stool for enteric pathogens, which was negative. No blood work was done and a plain film of the abdomen was done with no significant abnormalities or evidence for obstruction were noted. She continues to have episodes of increased mucus without blood in her stool where she will go 5 or 6 times in a day with urgency. She has a little bit of abdominal pressure that is alleviated with bowel movement, but no significant abdominal pain. As I recall, she did not note any significant change in weight. PAST MEDICAL HISTORY: Significant for unprovoked DVT in 2012 for which she has been maintained on warfarin without recurrence. She has history of hyperlipidemia with no known history of coronary artery disease and a history of essential tremor for which she is on propranolol. 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 She had undergone cholecystectomy at the age of 27 and has had a tonsillectomy and adenoidectomy at the age of 10. FAMILY HISTORY: She is not aware of any family history for GI tract malignancy or inflammatory bowel disease. SOCIAL HISTORY: She is retired with no past smoking or significant drinking history. PHYSICAL EXAMINATION: GENERAL: Reveals a white female who appeared to be in no acute distress. VITAL SIGNS: Blood pressure 140/94, weight 194 pounds. HEENT: Unremarkable. Sclerae nonicteric. CHEST: Clear to auscultation. CARDIOVASCULAR: Reveals a regular rate and rhythm without significant murmur, S3 or S4. ABDOMEN: Soft, supple without mass or organomegaly. Mild bilateral lower quadrant discomfort to palpation is present without rebound or guarding. Bowel sounds positive. EXTREMITIES: Reveal no cyanosis, clubbing or edema. Electronic medical record was reviewed. ASSESSMENT AND PLAN: Bowel habit change with history of ischemic colitis and unprovoked DVT, requiring Coumadin. The patient is being set up for diagnostic colonoscopy. She requested the procedure be done at [facility] where she has had all of her other procedures done, so the procedure was set up there only for that reason. Prep instructions were given and questions were answered. I thank you for the referral of this pleasant lady. Job ID: [id number] DocumentID: [id number] Dictated Date: 09/18/2021 16:54:46 Milieu Coordinator Date: 09/18/2021 19:48:35 Dictated By: STANISLAV LAZO MD
[~2021-10-03] VITALS: Ht 168 cm; Wt 88.0 kg
[~2021-10-03 07:45] MED LIST changes: +OMEP20TA56 PO
--- NOTE | 2021-10-03 07:51 | Pre-Op Note & Conscious Sedat ---
Pre-Operative Progress Note H&P Reviewed The H&P was reviewed, patient examined and no changes noted. Date H&P Reviewed: October 03, 2021 Time H&P Reviewed: 07:50 Conscious Sedation Pre-Proced ASA Score 2 For ASA 3 and 4: Consider anesthesia and medical clearance. Also, for patients with a history of failed moderate sedation consider anesthesia. Airway Lungs Heart ASA score ASA 1: a normal healthy patient ASA 2: a patient with a mild systemic disease (mid diabetes, controlled hypertension, obesity ASA 3: a patient with a severe systemic disease that limits activity (angina, COPD, prior Myocardial infarction) ASA 4: a patient with an incapacitating disease that is a constant threat to life (CHF, renal failure) ASA 5: a moribund patient not expected to survive 24 hrs. (ruptured aneurysm) ASA 6: a declared brain- patient whose organs are being harvested. For emergent operations, add the letter E after the classification Mallampati Classification Grade 2 Sedation Plan Analgesia, Amnesia, Plan communicated to team members, Discussed options with patient/fam, Discussed risks with patient/fam The patient is an appropriate candidate to undergo the planned procedure, sedation, and anesthesia. The patient immediately re-assessed prior to indication. STANISLAV LAZO MD October 03, 2021 07:51
[2021-10-03 08:05] VITALS: BP 130/66
[2021-10-03] MEDS ORDERED: LACTATED RINGERS 1,000 ML IV STA (08:05)
[2021-10-03] MEDS ORDERED: PROPOFOL INJECTION 50 ML IV ONE (08:47)
[2021-10-03] MEDS ORDERED: MIDAZOLAM 2 MG/2 ML (VERSED) VIAL ONE (08:47)
[2021-10-03 09:16] VITALS: BP 128/61
--- NOTE | 2021-10-03 09:19 | Anesthesia-General Post-Op ---
MAC Patient Condition Mental Status/LOC: Same as Preop Cardiovascular: Satisfactory Nausea/Vomiting: Absent Respiratory: Satisfactory Pain: Controlled Complications: Absent Post Op Complications Complications None Follow Up Care/Instructions Patient Instructions None needed. Anesthesiology Discharge Order Discharge Order Patient is doing well, no complaints, stable vital signs, no apparent adverse anesthesia problems. No complications reported per nursing. DAVION CADET CRNA October 03, 2021 09:19
[2021-10-03 09:40] VITALS: BP 116/53
[2021-10-03 10:05] VITALS: BP 120/68
--- NOTE | 2021-10-03 14:55 | OPERATIVE REPORT ---
DATE OF SERVICE: COLONOSCOPY SUMMARY INDICATION FOR THE PROCEDURE: Diarrhea, history of diverticulitis. The patient was placed in the left lateral decubitus position. Prior to undergoing colonoscopy, a digital rectal evaluation was performed. Anal sphincter tone was normal and the perianal reflexes intact. No abnormalities were noted on digital inspection of anal canal or distal rectal vault. The colonoscope was then inserted into the rectum and under direct visualization advanced to cecum. Cecum was identified by identification of ileocecal valve and cecal strap. Quality of prep was fair. FINDINGS: There was no evidence for internal or external hemorrhoids and the rectum was unremarkable. A biopsy was obtained and submitted for evaluation for microscopic colitis. Moderate diverticular disease confined to the sigmoid colon was present. There was about a 10 cm segment of sigmoid colon that revealed some erythema and edema without evidence for ulceration. This was more diffuse process, did not appear to be localized to an area of diverticular disease. No other sigmoid colonic abnormalities were appreciated. The descending colon, splenic flexure, transverse colon and hepatic flexure were unremarkable. A 3 mm sessile adenomatous appearing polyp was noted in the proximal ascending colon. It was photographed and biopsied and ablated with minimal blood loss. The cecum and the colon was unremarkable. ASSESSMENT: 1. There was a 10 cm segment of erythema and edema in the colon present in the mid sigmoid colon, more diffuse in appearance and what would be expected from actual diverticulitis. Biopsies were obtained and has had similar appearance to previous colonoscopy in 2013, at which time biopsies were compatible with ischemic colitis. We did obtain a biopsy from the rectum for evaluation for microscopic colitis as well with further recommendations pending biopsy report. 2. One diminutive polyp was removed from the proximal ascending colon. We would advocate consideration for repeat screening colonoscopy in 5 years pending the patient's health at that time. Job ID: [id number] DocumentID: [id number] Dictated Date: 10/03/2021 09:14:11 Cardiovascular Sonographer Date: 10/03/2021 14:54:28 Dictated By: STANISLAV LAZO MD
== END 2021-10-03 10:05 | disposition home or self-care (01) ==
LOC: ENDO 07:45
PROVIDERS: ATTEND Internal Medicine
DX: K63.5 Polyp of colon (principal); K52.9 Noninfective gastroenteritis and colitis, unspecified; K63.89 Other specified diseases of intestine; K57.30 Diverticulosis of large intestine without perforation or abscess without bleeding
CPT/HCPCS: 88305

== ENCOUNTER → 2022-02-19 | Outpatient (CLI) | payer MEDICARE ==
--- NOTE | 2022-02-20 11:36 | Diagnostic Imaging Report ---
Indication: Routine screening. Comparison is made with prior mammograms 02/18/2021 and 01/11/2020. 2-D and 3-D bilateral screening mammography was performed with CAD. Scattered fibroglandular densities are identified bilaterally. The parenchymal pattern is stable. No mass or malignant-appearing microcalcifications are seen. There are benign calcifications. Axillae are unremarkable. IMPRESSION: BI-RADS Category 2 No mammographic features suspicious for malignancy are identified. ACR BI-RADS Category 2: Benign findings. Result letter will be mailed to the patient. Note: At least 10% of breast cancer is not imaged by mammography. Dictated by: Dictated on workstation # [id number]
== END ==
LOC: RAD 14:45
PROVIDERS: ATTEND Internal Medicine
DX: Z12.31 Encounter for screening mammogram for malignant neoplasm of breast (principal)
CPT/HCPCS: 77063; 77067

== ENCOUNTER → 2022-03-10 | Outpatient (CLI) | payer MEDICARE ==
[~2022-03-10] MED LIST changes: +ALBU8.5H6 IH; -RT-ALBUINH IH
== END ==
LOC: LAB 13:28
PROVIDERS: ATTEND Internal Medicine
DX: Z51.81 Encounter for therapeutic drug level monitoring (principal); Z79.899 Other long term (current) drug therapy

== ENCOUNTER → 2022-03-10 | Outpatient (CLI) | payer MEDICARE ==
--- NOTE | 2022-03-10 16:42 | Diagnostic Imaging Report ---
INDICATION: 71-year-old postmenopausal female COMPARISON: 04/08/2017 FINDINGS: AP Spine L1-L4: [BMD (g/cm2): 0.963] [T-Score: -2.0] [Z-Score: -1.0] [BMD Previous: 1.143] [BMD % Change: -15.7] LT Hip Neck: [BMD (g/cm2): 0.821] [T-Score: -1.6] [Z-Score: -0.2] LT Hip Total: [BMD (g/cm2):0.909] [T-Score:-0.8] [Z-Score: 0.3] [BMD Previous: 0.965] [BMD % Change: -5.8] RT Hip Neck: [BMD (g/cm2):0.850] [T-Score:-1.4] [Z-Score:0.0] RT Hip Total: [BMD (g/cm2):0.892] [T-score:-0.9] [Z-Score:0.1] [BMD Previous:0.932] [BMD % Change:-4.3] *Indicates significant change from prior examination based on 95% confidence level. World Health Organization criteria for BMD interpretation classify patients as Normal (T-score at or above -1.0), Osteopenic (T-score between -1.0 and -2.5) or Osteoporotic (T-score at or below -2.5). LIMITATIONS AND MODIFICATION: None. FRACTURE RISK (FRAX SCORE): The ten year probability of (%): Major Osteoporotic Fracture: [13.4] Hip Fracture: [2.4] IMPRESSION: 1. Osteopenia (Low bone mass). 2. Bone mineral density has decreased by a statistically significant amount, as detailed above. 3. See below National Osteoporosis Foundation guidelines on when to potentially initiate pharmacologic therapy. Based on the National Osteoporosis Foundation Guidelines, pharmacologic treatment should be initiated in any of the following, unless clinical conditions suggest otherwise: * Any patient with prior fragility fracture of the hip or vertebrae. A spine fracture indicates 5X risk for subsequent spine fracture and 2X risk for subsequent hip fracture. * Osteoporosis (T-score <-2.5). * Postmenopausal women and men age 50 and older with low bone mass/osteopenia (T-score between -1.0 and -2.5) by DXA and 10-year major osteoporotic fracture greater than 20% or a 10-year probability of hip fracture greater than 3%. These fracture risks are supplied above in the FRAX score, if applicable. * Clinician judgement and/or patient preferences may indicate treatment for people with 10-year fracture probabilities above or below these levels. Dictated by: Dictated on workstation # [id number]
== END ==
LOC: RAD 13:00
PROVIDERS: ATTEND Internal Medicine
DX: Z51.81 Encounter for therapeutic drug level monitoring (principal); M85.80 Other specified disorders of bone density and structure, unspecified site; Z78.0 Asymptomatic menopausal state
CPT/HCPCS: 77080

== ENCOUNTER → 2022-03-18 | Outpatient (CLI) | payer MEDICARE ==
[2022-03-18 15:44] LABS: HEMATOCRIT 46 % (35-52); HEMOGLOBIN 15.2 g/dL (11.5-16.0); MEAN CORPUSCULAR HEMOGLOBIN 31 pg (25-34); MEAN CORPUSCULAR HGB CONC 33 g/dL (32-36); MEAN CORPUSCULAR VOLUME 92 fL (80-99); MEAN PLATELET VOLUME 11.1 fL (9.0-12.2); PLATELET COUNT 313 10^3/uL (130-400); WHITE BLOOD COUNT 9.7 10^3/uL (4.3-11.0)
[2022-03-18 15:50] LABS: TRIGLYCERIDES 155 MG/DL (<150); VLDL CHOLESTEROL 31 MG/DL (5-40)
[2022-03-18 15:55] LABS: CHOLESTEROL 198 MG/DL (< 200)
[2022-03-18 15:56] LABS: HDL CHOLESTEROL 67 MG/DL (40-60)
[2022-03-18 15:57] LABS: BASOPHILS # (AUTO) 0.1 10^3/uL (0.0-0.1); BASOPHILS % (AUTO) 1 % (0-10); EOSINOPHILS # (AUTO) 0.4 10^3/uL (0.0-0.3); EOSINOPHILS % (AUTO) 4 % (0-10); LYMPHOCYTES % (AUTO) 33 % (12-44); MONOCYTES # (AUTO) 0.7 X 10^3 (0.0-1.0); MONOCYTES % (AUTO) 8 % (0-12); NEUTROPHILS # (AUTO) 5.1 X 10^3 (1.8-7.8); NEUTROPHILS % (AUTO) 55 % (42-75)
== END ==
LOC: LAB 14:52
PROVIDERS: ATTEND Internal Medicine
DX: Z13.220 Encounter for screening for lipoid disorders (principal); Z51.81 Encounter for therapeutic drug level monitoring; R73.09 Other abnormal glucose
CPT/HCPCS: 36415; 80061; 83036; 85025; 85027

== ENCOUNTER → 2022-07-31 | Outpatient (CLI) | payer MEDICARE ==
[~2022-07-31] MED LIST changes: +CATHETER FLUSH 10 ML SYR IVP PRN
[2022-07-31 08:08] VITALS: BP 157/68
--- NOTE | 2022-07-31 11:36 | Cardiology Stress Test Report ---
Stress Test Report Date of Procedure/Referring: Date of Procedure: Jul 31, 2022 PCP James Maravilla DO Admitting Physician Admitting Physician: Attending Physician: James Maravilla DO Indications: CP Baseline Vital Signs Vital Signs Date Time Temp Pulse Resp B/P (MAP) Pulse Ox O2 Delivery O2 Flow Rate FiO2 07/31/22 08:08 57 157/68 (97) Summary: Patient receive a resting and stress dose of Myoview, images were acquired and reviewed in the short axis view, horizontal long axis view and vertical long axis view. TID: 0.87 SSS: 5 SDS: 4 EF: 75 Diaphragmatic attenuation and increased gastric uptake affecting the quality of the images there is mild decrease uptake at the mid to apical inferior wall with mild reversibility could be secondary to diaphragmatic attenuation, cannot exclude ischemia in the inferior wall Normal left ventricular size, normal contractility, inferior wall is yudith normally, ejection fraction 75% Copy Copies To 1: JAMES MARAVILLA BASHAR J MD Jul 31, 2022 11:36
== END ==
LOC: CARD 07:00
PROVIDERS: ATTEND Internal Medicine
DX: G60.8 Other hereditary and idiopathic neuropathies (principal); M81.0 Age-related osteoporosis without current pathological fracture; R07.89 Other chest pain
CPT/HCPCS: 78452; 93017; A9502

== ENCOUNTER → 2022-08-26 | Outpatient (CLI) | payer MEDICARE ==
[~2022-08-26] MED LIST changes: -CATHETER FLUSH 10 ML SYR IVP PRN; +IOHEXOL 350 MG/ML 100 ML (OMNIPAQUE 350) VIAL IV ONE; +NITROGLYCERIN 0.4 MG SL TABS BTL 25'S SL STA; +NS 100 ML (IVPB) BAG IV ONE; +meTOprolol 5 MG/5 ML (LOPRESSOR) VIAL IV PRN
[2022-08-26 14:03] VITALS: BP 134/49
[2022-08-26 14:15] VITALS: BP 113/64
[2022-08-26 14:32] LABS: CREATININE SERUM 0.72 MG/DL (0.60-1.30)
[2022-08-26 14:40] VITALS: BP 116/63
[2022-08-26 14:45] VITALS: BP 103/71
[2022-08-26 14:50] VITALS: BP 110/84
[2022-08-26 14:55] VITALS: BP 127/73
--- NOTE | 2022-08-26 15:32 | Diagnostic Imaging Report ---
EXAMINATION: CTA of the coronary arteries. TECHNIQUE: Contrast-enhanced thin section helical images were obtained through the heart and coronary arteries with intravenous contrast timed for the optimal opacification of the coronary arterial structures per gated CTA protocol. Post-processing, reconstructions and interpretation of angiographic images of the vessels was performed. 3D MIP reconstructions were performed and reviewed. All CT scans use one or more of the following dose optimizing techniques: Automated exposure control, MA and/or KvP adjustment based on a patient size and exam type, or iterative reconstruction. HISTORY: Chest pain. COMPARISON: None available. FINDINGS: Left main coronary artery is normal. Left anterior descending artery is normal. Proximal right coronary artery is obscured by motion. Mid and distal right coronary artery are normal. Circumflex artery is normal. The coronary arteries are right dominant. There is no anomalous coronary artery origin or course. There is no myocardial bridging. There is no ventricular dilation or hypertrophy. Both atria are normal in size. Aorta is normal in caliber. There is no edema or pneumonia. No pleural effusion. No pneumothorax. No suspicious nodules. There is a large hiatal hernia. No pericardial effusion. There is no mediastinal lymphadenopathy. Limited views of the upper abdomen are unremarkable. There are no suspicious osseous lesions. IMPRESSION: 1. Normal coronary arteries. The proximal right coronary artery is obscured by motion, but the remainder are well evaluated and are normal. Dictated by: Dictated on workstation # [id number]
== END ==
LOC: RAD 13:25
PROVIDERS: ATTEND Internal Medicine
DX: R07.89 Other chest pain (principal)
CPT/HCPCS: 36415; 75574; 82565; 84520

== ENCOUNTER → 2022-09-11 | Outpatient (CLI) | payer MEDICARE ==
[~2022-09-11] MED LIST changes: +CULTURELLE PO; +GADOTERATE 0.5 MMOL/ML (CLARISCAN) 20 ML VIAL IV ONE; -IOHEXOL 350 MG/ML 100 ML (OMNIPAQUE 350) VIAL IV ONE; -NITROGLYCERIN 0.4 MG SL TABS BTL 25'S SL STA; -NS 100 ML (IVPB) BAG IV ONE; -meTOprolol 5 MG/5 ML (LOPRESSOR) VIAL IV PRN
== END ==
LOC: RAD 13:13
PROVIDERS: ATTEND Otolaryngology Otolaryngology/Facial Plastic Surgery
DX: Z53.9 Procedure and treatment not carried out, unspecified reason (principal)

== ENCOUNTER 2022-09-14 12:12 | Outpatient (CLI) | payer MEDICARE ==
[~2022-09-14] VITALS: Ht 167.7 cm; Wt 85.0 kg
[~2022-09-14 12:12] MED LIST changes: -CULTURELLE PO; -GADOTERATE 0.5 MMOL/ML (CLARISCAN) 20 ML VIAL IV ONE
[2022-09-14] MEDS ORDERED: DENOSUMAB 60 MG/1 ML (PROLIA) SQ ONE (12:45)
[2022-09-14 13:30] VITALS: BP 112/67
[2022-09-14] MEDS ORDERED: CULTURELLE PO (15:02)
== END 2022-09-14 13:30 | disposition home or self-care (01) ==
LOC: SDC 12:12
PROVIDERS: ATTEND Internal Medicine
DX: M81.0 Age-related osteoporosis without current pathological fracture (principal)
CPT/HCPCS: 96372

== ENCOUNTER → 2022-09-21 | Outpatient (CLI) | payer MEDICARE ==
[~2022-09-21] MED LIST changes: +CULTURELLE PO
--- NOTE | 2022-09-21 19:34 | Diagnostic Imaging Report ---
INDICATION: Right breast pain. Sonographic interrogation of the area of pain lateral right breast was performed. This corresponded to the 7-11 o'clock location. No sonographic abnormality is seen. No solid or cystic mass is detected. IMPRESSION: BI-RADS Category 1. No sonographic abnormality is detected. ACR BI-RADS Category 1: Negative. Result letter will be mailed to the patient. Note: At least 10% of breast cancer is not imaged by mammography. Dictated by: Dictated on workstation # [id number]
== END ==
LOC: RAD 13:34
PROVIDERS: ATTEND Nurse Practitioner Women's Health
DX: N64.4 Mastodynia (principal)

== ENCOUNTER → 2022-09-21 | Outpatient (CLI) | payer MEDICARE ==
[2022-09-21 14:51] LABS: CREATININE SERUM 0.75 MG/DL (0.60-1.30)
== END ==
LOC: LAB 14:23
PROVIDERS: ATTEND Otolaryngology Otolaryngology/Facial Plastic Surgery
DX: H90.42 Sensorineural hearing loss, unilateral, left ear, with unrestricted hearing on the contralateral side (principal); R47.89 Other speech disturbances
CPT/HCPCS: 36415; 82565; 84520

== ENCOUNTER → 2022-09-25 | Outpatient (CLI) | payer MEDICARE ==
[~2022-09-25] MED LIST changes: +CATHETER FLUSH 10 ML SYR IV PRN; +HOLD METFORMIN - RECEIVED CONTRAST 20 ML VIAL IV SCH; +IOHEXOL 350 MG/ML 100 ML (OMNIPAQUE 350) VIAL IV ONE; +NS 100 ML (IVPB) BAG IV ONE
--- NOTE | 2022-09-25 14:31 | Diagnostic Imaging Report ---
CLINICAL INDICATION: Patient with asymmetric left sensorineural hearing loss. EXAM: CT scan of the orbits, sella/IACs with 75 mL of Omnipaque 350 IV contrast. Sagittal and coronal reformatted images were created. Auto Exposure Controls were utilized during the CT exam to meet ALARA standards for radiation dose reduction. COMPARISON: Head CT without contrast dated 01/22/2015. FINDINGS: Mastoid air cells are clear. The otic capsular structures are unremarkable, and middle ear ossicular structures are unremarkable as visualized. The bilateral external auditory canals show no obstructive process. The right external auditory canal is slightly smaller in caliber compared to the left, but there is no mass seen. There is no abnormal enhancement involving the cerebellopontine angle or visible abnormal enhancement involving the IACs. There is no abnormal widening or bony erosions of the bilateral IACs. There is no enhancing mass involving the inner ear regions. The sella and visualized portions of the pituitary gland are unremarkable. Limited visualization of the intracranial structures is unremarkable. Paranasal sinuses are clear. The extracranial soft tissues, skull, and orbits are unremarkable. IMPRESSION: Unremarkable CT scan of the skull base, temporal bone regions, sella, and orbits. There is no evidence of retrocochlear enhancing mass and no abnormality of the bilateral IACs. Dictated by: Dictated on workstation # [id number]
== END ==
LOC: RAD 12:24
PROVIDERS: ATTEND Otolaryngology Otolaryngology/Facial Plastic Surgery
DX: H90.42 Sensorineural hearing loss, unilateral, left ear, with unrestricted hearing on the contralateral side (principal)
CPT/HCPCS: 70481

== ENCOUNTER → 2023-03-02 | Outpatient (CLI) | payer MEDICARE ==
[~2023-03-02] MED LIST changes: -CATHETER FLUSH 10 ML SYR IV PRN; -HOLD METFORMIN - RECEIVED CONTRAST 20 ML VIAL IV SCH; -IOHEXOL 350 MG/ML 100 ML (OMNIPAQUE 350) VIAL IV ONE; -NS 100 ML (IVPB) BAG IV ONE
--- NOTE | 2023-03-02 14:25 | Diagnostic Imaging Report ---
Indication: Routine screening. Comparison is made with prior mammogram 02/19/2022 and 02/18/2021. 2-D and 3-D bilateral screening mammography was performed with CAD. The current study was also evaluated with a Computer Aided Detection (CAD) system. Scattered fibroglandular densities are identified bilaterally. The parenchymal pattern is stable. No mass or malignant-appearing microcalcifications are seen. Axillae are unremarkable. IMPRESSION: BI-RADS Category 1 1. No mammographic features suspicious for malignancy are identified. ACR BI-RADS Category 1: Negative. Result letter will be mailed to the patient. Note: At least 10% of breast cancer is not imaged by mammography. Dictated by: Dictated on workstation # [id number]
== END ==
LOC: RAD 11:28
PROVIDERS: ATTEND Internal Medicine
DX: Z12.31 Encounter for screening mammogram for malignant neoplasm of breast (principal)
CPT/HCPCS: 77063; 77067

== ENCOUNTER → 2023-03-18 | Outpatient (CLI) | payer MEDICARE ==
[~2023-03-18] MED LIST changes: +DENOSUMAB 60 MG/1 ML (PROLIA) SQ ONE
[2023-03-18 12:32] VITALS: BP 135/66
== END ==
LOC: SDC 12:08
PROVIDERS: ATTEND Internal Medicine
DX: M81.0 Age-related osteoporosis without current pathological fracture (principal)
CPT/HCPCS: 96372